=== PATIENT | female | born 1985 | race Caucasian/White ===

== ENCOUNTER 2016-10-06 21:44 | Emergency (ER) | payer OTHER ==
[~2016-10-06] VITALS: Ht 157.5 cm; Wt 54.3 kg
[~2016-10-06 21:44] MED LIST: BUTA1CAP6 PO; CHOLCAP5 PO; DIME1CAP2 PO; HYDR-3714 PO
[2016-10-06 21:53] VITALS: TEMP 36.5; Ht 157.5 cm; Wt 54.3 kg
[2016-10-06] MEDS ORDERED: LXP10 PO (22:58)
[2016-10-06] MEDS ORDERED: LXP/20 PO (22:58)
[2016-10-06] MEDS ORDERED: ONDANSETRON HOME PACK 4MG OD TAB PO ONE (23:00)
[2016-10-06] MEDS ORDERED: OXYCODONE IR HOME PACK PO ONE (23:00)
[2016-10-06] MEDS ORDERED: VALA1TAB2 PO (23:04)
[2016-10-06] MEDS ORDERED: OXYC1TAB3 PO (23:04)
[2016-10-06] MEDS ORDERED: ONDA4TAB10 SL (23:04)
[2016-10-06] MEDS ORDERED: PRED50TA PO (23:04)
[2016-10-06 23:24] VITALS: BP 122/78; PULSE 86; O2SAT 97
--- NOTE | 2016-10-07 02:28 | EMERGENCY ROOM VISIT NOTE ---
History First contact with patient: 22:47 Chief Complaint: RASH Stated Complaint: BLISTER RASH L ARM/PIT BACK History of Present Illness The patient is a 31 year old female who presents to the Emergency Room with complaints of painful blistering rash to left axilla for the past day. Patient is concerned she has shingles. She has MS. No recent flares of her MS. She has had the chickenpox before. Patient denies chest pain, dyspnea, fever, chills, cough, congestion, numbness, tingling. Review of Systems See HPI for pertinent positives & negatives. A total of 10 systems reviewed and were otherwise negative. Past Medical/Surgical History Medical Problems: (1) Multiple sclerosis Surgical Problems: (1) History of dilation and curettage (2) History of tonsillectomy Family History FHx: cancer FHx: diabetes FHx: gallbladder disease FHx: heart disease FHx: hypertension FHx: kidney disease/stones FHx: lung disease Social History Smoking Status: Current Every Day Smoker Alcohol Use: occasionally Drug Use: none Marital Status: in relationship Housing Status: lives with family Occupation Status: employed Current/Historical Medications Scheduled Amphetamine-Dextroamphetamine 10MG (Adderall 10MG), 10 MG PO BID Cholecalciferol (Vitamin D3), 5,000 UNITS PO DAILY Dimethyl Fumarate (Tecfidera), 240 MG PO BID Escitalopram Oxalate (Escitalopram Oxalate), 10 MG PO DAILY Escitalopram Oxalate (Escitalopram Oxalate), 20 MG PO DAILY Ondasetron Odt (Zofran Odt), 4 MG SL Q6H Prednisone (Prednisone), 50 MG PO DAILY Valacyclovir Hcl (Valtrex), 1,000 MG PO TID Scheduled PRN Hydrocodon/Acetaminophen 7.5MG/300MG (Vicodin Es (7.5MG/300MG)), 1 TAB PO BID PRN for Pain Oxycodone Immediate Rel Tab (Roxicodone Ir), 1-2 TAB PO Q4H PRN for Severe Pain Allergies Coded Allergies: Venlafaxine (Verified Adverse Reaction, Mild, DROWSINESS, 07/24/16) Morphine (Verified Adverse Reaction, Unknown, chest pain, 07/24/16) Physical Exam Vital Signs Date Time Temp Pulse Resp B/P Pulse Ox O2 Delivery O2 Flow Rate FiO2 10/06/16 23:24 86 18 122/78 97 10/06/16 21:53 36.5 86 18 122/78 97 Room Air Pain Rating (0-10): 7.0 Physical Exam VITALS: Vitals are noted on the nurse's note and reviewed by myself. Vital signs stable. GENERAL: Pleasant female, in no acute distress, nondiaphoretic, well-developed well-nourished. SKIN: Vesicular, glossy, grouped on erythematous base to the left C8 dermatome most consistent with shingles Capillary reflex less than 2 seconds. HEENT: Normocephalic. PERRLA. EOMI. Nares patent. Mucous membranes moist. Neck is supple without nuchal rigidity. HEART: Regular rate and rhythm without murmurs gallops or rubs. LUNGS: Clear to auscultation bilaterally without wheezes, rales or rhonchi. No retractions or accessory muscle use. ABDOMEN: Positive bowel sounds x 4. Normal tympanic percussion. Soft, nontender, without masses or organomegaly. Hickey sign negative. No guarding or rebound tenderness. MUSCULOSKELETAL: No gross musculoskeletal defects. NEURO: Patient was alert and oriented to person place and time. Normal sensation to light and sharp touch. No focal neurological deficits. Medical Decision & Procedures Medications Administered Medications (Trade) Dose Ordered Sig/Mari Route Start Time Stop Time Status Last Admin Dose Admin Valacyclovir HCl (Valtrex Tab) 1,000 mg NOW ONCE PO 10/06/16 23:00 10/06/16 23:01 DC 10/06/16 23:12 1,000 MG Oxycodone HCl (Roxicodone Immediate Rel 5MG Home Pack) 1 homepack UD ONCE PO 10/06/16 23:00 10/06/16 23:01 DC 10/06/16 23:12 1 HOMEPACK Prednisone (PredniSONE TAB) 60 mg NOW STAT PO 10/06/16 22:56 10/06/16 22:57 DC 10/06/16 23:12 60 MG Ondansetron HCl (ZOFRAN ODT 4MG Home Pack) 1 homepack UD ONCE PO 10/06/16 23:00 10/06/16 23:01 DC 10/06/16 23:12 1 HOMEPACK ED Course Prior records/ancillary studies reviewed. Triage Nursing notes reviewed. Additional history obtained from family. The patient's history was concerning for a rash. Differential diagnosis: Etiologies such as contact dermatitis, viral exanthem, urticaria, allergic reaction, Quiñones-Jeremias syndrome, toxic epidermal necrolysis, erythema multiforme, cellulitis, scabies, HSV, varicella, zoster, eczema, staph scalded skin syndrome, fungal infection, as well as others were entertained. Physical examination: Exam seems consistent with shingles ER treatment provided: Valtrex, prednisone On reassessment the patient felt better. Diagnostic interpretation by me: Deferred The etiology for the patient's rash appears to be consistent with shingles. Patient was started on medications of symptoms of present illness 48 hours. She is advised to stay away from immunocompromised people and from infants until rash resolves. She is advised follow-up family care in a few days or here in the ER sooner for severe pain, fevers, headache, eye problems, spreading of rash, worsening signs or symptoms or as needed. By the evaluation outlined above emergent etiologies such as Quiñones-Jeremias syndrome, toxic epidermal necrolysis, erythema multiforme, cellulitis, scabies, HSV, staph scalded skin syndrome, urticaria, allergic reaction, as well as others were deemed relatively unlikely. The pt informed about the findings as listed above. All questions were answered and pleased with the treatment. Return instructions were outlined and the patient was discharged in stable condition. Outpatient prescription management: valtrex, prednisone Referral: The patient was referred back to their primary care physician for follow-up in 2 -3 days for a recheck of the current condition. Medical Decision as above Impression Primary Impression: Shingles Departure Information Dispostion Home / Self-Care Condition GOOD Prescriptions Oxycodone Immediate Rel Tab (ROXICODONE IR) 5 Mg Tab 1-2 TAB PO Q4H Y for Severe Pain, #10 TAB Prov: Roula Mcdowell PA-C 10/06/16 Valacyclovir Hcl (VALTREX) 1 Gm Tab 1000 MG PO TID for 7 Days, #21 TAB Prov: Roula Mcdowell PA-C 10/06/16 Ondasetron Odt (ZOFRAN ODT) 4 Mg Tab 4 MG SL Q6H, #10 TAB Prov: Roula Mcdowell PA-C 10/06/16 Prednisone (Prednisone) 50 Mg Tab 50 MG PO DAILY for 4 Days, #4 TAB Prov: Roula Mcdowell PA-C 10/06/16 Forms WORK / SCHOOL INSTRUCTIONS, HOME CARE DOCUMENTATION FORM, IMPORTANT VISIT INFORMATION Patient Instructions Shingles Herpes Zoster, My [facility] Additional Instructions Oxycodone (OxyIR) 5mg: Take 1-2 pills every four hours for breakthrough pain. Avoid alcohol, operating machinery or dangerous equipment, working on ladders or roofs, DRIVING, or situations where being under the influence may be dangerous. It is recommended to use an [id number] stool softener such as Colace, 100mg twice daily while taking this medication to avoid constipation. Zofran(odansetron) tablets 4mg: Take one and allow it to dissolve in your mouth every four to six hours as needed for nausea or vomiting. Prednisone 50mg: Once daily until the prescription is finished. It is best to take this earlier in the day as some patients note occasional difficulty falling asleep when taken in the late evening. Valtrex 1 g: Take 1 gram 3 times a day for 7 days. Any medication can cause an allergic reaction, stop the pills immediately and return to the ER for rash, hives, breathing difficulties, or swelling. Acetaminophen(Tylenol) may be used for fever or pain. Use 1000mg every six hours as needed. Avoid using more than 3000mg in a 24 hour period. (AND/OR) Ibuprofen(Motrin, Advil) may be used for fever or pain. Use 600mg every six hours as needed. Take with food. Avoid using more than 2400mg in a 24 hour period. Do not use 2400mg per day for more than three consecutive days without physician direction. Prolonged inappropriate use can lead to stomach upset or ulcers. Rest and drink plenty of fluids. Continue current medications. Return to the ER for chest pain, difficulty breathing, fevers, vomiting, worsening of your condition, or as needed. Follow up with your primary physician this week for a recheck of your current condition. Problem Qualifiers Primary Impression: Shingles Herpes zoster complications: without complications Qualified Codes: B02.9 - Zoster without complications
[2017-01-29] MEDS ORDERED: AMPH10TA2 PO (05:01)
[2017-04-25] MEDS ORDERED: HYDR-3983 PO (13:49)
[2017-04-25] MEDS ORDERED: AMOX875T PO (13:52)
== END 2016-10-06 23:26 | disposition home or self-care (01) ==
LOC: C.EDB 21:45 → C.EDA 23:26
DX: B02.9 Zoster without complications (principal); G35 Multiple sclerosis; F17.200 Nicotine dependence, unspecified, uncomplicated; Z90.89 Acquired absence of other organs; Z98.890 Other specified postprocedural states; Z83.3 Family history of diabetes mellitus; Z82.49 Family history of ischemic heart disease and other diseases of the circulatory system; Z84.1 Family history of disorders of kidney and ureter; Z79.52 Long term (current) use of systemic steroids

== ENCOUNTER → 2016-10-28 | Outpatient (CLI) | payer OTHER ==
[~2016-10-28] MED LIST changes: +AMOX875T PO; +AMPH10TA2 PO; -BUTA1CAP6 PO; +CLIN300C2 PO; +ERGO500037 PO; +ESCI1TAB10 PO; +ESCI1TAB9 PO; +HYDR-3983 PO; +IBUP-1451 PO; +LXP/20 PO; +LXP10 PO; +ONDA4TAB10 SL; +OXYC1TAB3 PO; +PRLSR20 PO; +ZNTT/150 PO
[2016-11-02 18:35] LABS: JCV ANTIBODY NEGATIVE; JCV INDEX 0.18
== END | disposition home or self-care (01) ==
LOC: C.LABBFT 11:23
PROVIDERS: ATTEND Psychiatry & Neurology Neurology
DX: G35 Multiple sclerosis (principal)

== ENCOUNTER 2016-12-01 17:39 | Emergency (ER) | payer OTHER ==
[~2016-12-01] VITALS: Ht 167.6 cm; Wt 51.8 kg
[~2016-12-01 17:39] MED LIST changes: -AMOX875T PO; -AMPH10TA2 PO; -CLIN300C2 PO; -ERGO500037 PO; -ESCI1TAB10 PO; -ESCI1TAB9 PO; -HYDR-3983 PO; -IBUP-1451 PO; -PRLSR20 PO; -ZNTT/150 PO
[2016-12-01 17:46] VITALS: Ht 167.6 cm; Wt 51.8 kg
[2016-12-01] MEDS ORDERED: SODIUM CHLORIDE 0.9% 1000ML 1,000 ML IV STA (18:03)
[2016-12-01 18:57] LABS: BUN/CREATININE RATIO 23.2 (10-20); CALCIUM 9.3 mg/dl (8.5-10.1); CREATININE 0.72 mg/dl (0.60-1.20); POTASSIUM 3.3 mmol/L (3.5-5.1)
[2016-12-01 19:00] LABS: ALB/GLOB RATIO 1.2 (0.9-2)
[2016-12-01 19:20] LABS: BASO % 0.5 %; BASO ABS # 0.05 K/uL (0-0.2); COMPLETE YES; EOS % 0.6 %; HEMATOCRIT 38.5 % (37-47); IG% 0.6 %; LYMPH % 17.6 %; LYMPH ABS # 1.92 K/uL (1.2-3.4); MEAN CELL VOLUME 94.1 fL (80-100); MEAN CORPUSCULAR HEMOGLOBIN 33.5 pg (25-34); MEAN CORPUSCULAR HGB CONC 35.6 g/dl (32-36); MEAN PLATELET VOLUME 9.9 fL (7.4-10.4); NEUT % 72.7 %; PLATELET COUNT 336 K/uL (130-400); RED BLOOD COUNT 4.09 M/uL (4.2-5.4)
--- NOTE | 2016-12-01 19:58 | DIAGNOSTIC IMAGING REPORT ---
LIMITED (US) CLINICAL HISTORY: vaginal bleeding, pos COMPARISON STUDY: Pelvic ultrasound 11/27/2015. FINDINGS: There is a 9 mm cystic focus within the fundus of the uterus with surrounding thickened endometrium. The endometrium slightly heterogeneous. No pole or heart rate identified at this time. There is a normal in size and contain a few small simple and complex cysts. No significant pelvic free fluid. IMPRESSION: There is 9 mm cystic focus within the fundus of the uterus with surrounding thickened and heterogeneous endometrium. This favors a gestational sac in the setting of a positive test. There appears be a small amount of subchorionic hemorrhage accounting for the heterogeneous endometrium. No pole or heart rate identified at this time. Therefore, this is consistent with a 4 week intrauterine gestation. Continued beta-hCG and follow-up pelvic ultrasound can be performed to evaluate for continuation of the versus a spontaneous in progress.. Electronically signed by: Bandar Guardado M.D. 12/01/2016 7:56 PM Dictated Date/Time: 12/01/2016 7:52 PM
--- NOTE | 2016-12-01 21:01 | EMERGENCY ROOM VISIT NOTE ---
History First contact with patient: 17:50 Chief Complaint: ED VAG BLEEDING Stated Complaint: BLEEDING History of Present Illness The patient is a 31 year old female who presents to the Emergency Room with complaints of vaginal bleeding. The patient reports that she had a positive test 3 weeks ago. She states that her last menstrual period was . She states that she has had spotting which began 3 days ago. She reports the bleeding became heavy last night and she has been using pads today. She reports there was a small clot which passed in the toilet today. She sees Sherly Sanchez [facility] but has not yet seen them for this . She does report 3 previous pregnancies. She carried 2 to term and states that she had to have an emergent D&C for a miscarriage at approximately 14 weeks. She believes she is blood type A+. She denies any abdominal cramping, urinary symptoms or fevers. Review of Systems A complete 10-point Review of Systems was discussed with the patient, with pertinent positives and negatives listed in the History of Present Illness. All remaining Review of Systems questions can be considered negative unless otherwise specified. Past Medical/Surgical History Medical Problems: (1) Multiple sclerosis Surgical Problems: (1) History of dilation and curettage (2) History of tonsillectomy Family History FHx: cancer FHx: diabetes FHx: gallbladder disease FHx: heart disease FHx: hypertension FHx: kidney disease/stones FHx: lung disease Social History Smoking Status: Current Every Day Smoker Alcohol Use: occasionally Drug Use: none Marital Status: in relationship Housing Status: lives with family Occupation Status: employed Current/Historical Medications Scheduled Amphetamine-Dextroamphetamine 10MG (Adderall 10MG), 10 MG PO BID Cholecalciferol (Vitamin D3), 5,000 UNITS PO DAILY Allergies Coded Allergies: Venlafaxine (Verified Adverse Reaction, Mild, DROWSINESS, 12/01/16) Morphine (Verified Adverse Reaction, Unknown, chest pain, 12/01/16) Physical Exam Vital Signs Date Time Temp Pulse Resp B/P Pulse Ox O2 Delivery O2 Flow Rate FiO2 12/01/16 21:48 78 18 114/68 98 Room Air 12/01/16 21:41 36.7 74 18 122/75 95 12/01/16 17:46 36.7 74 18 122/75 95 Room Air Physical Exam VITALS: Vitals are noted on the nurse's note and reviewed by myself. Vital signs stable. GENERAL: This is a 31-year-old female, in no acute distress, nondiaphoretic, well-developed well-nourished. SKIN: Capillary reflex less than 2 seconds. HEENT: Normocephalic. PERRLA. HEART: Regular rate and rhythm without murmurs gallops or rubs. LUNGS: Clear to auscultation bilaterally without wheezes, rales or rhonchi. ABDOMEN: Positive bowel sounds x 4. Soft, nontender without masses or organomegaly. NEURO: Patient was alert and oriented to person place and time. Medical Decision & Procedures ER Provider Diagnostic Interpretation: LIMITED (US) CLINICAL HISTORY: vaginal bleeding, pos COMPARISON STUDY: Pelvic ultrasound 11/27/2015. FINDINGS: There is a 9 mm cystic focus within the fundus of the uterus with surrounding thickened endometrium. The endometrium slightly heterogeneous. No pole or heart rate identified at this time. There is a normal in size and contain a few small simple and complex cysts. No significant pelvic free fluid. IMPRESSION: There is 9 mm cystic focus within the fundus of the uterus with surrounding thickened and heterogeneous endometrium. This favors a gestational sac in the setting of a positive test. There appears be a small amount of subchorionic hemorrhage accounting for the heterogeneous endometrium. No pole or heart rate identified at this time. Therefore, this is consistent with a 4 week intrauterine gestation. Continued beta-hCG and follow-up pelvic ultrasound can be performed to evaluate for continuation of the versus a spontaneous in progress.. Laboratory Results 12/01/16 18:24 Red Blood Count 4.09, Mean Corpuscular Volume 94.1, Mean Corpuscular Hemoglobin 33.5, Mean Corpuscular Hemoglobin Concent 35.6, Mean Platelet Volume 9.9, Neutrophils (%) (Auto) 72.7, Lymphocytes (%) (Auto) 17.6, Monocytes (%) (Auto) 8.0, Eosinophils (%) (Auto) 0.6, Basophils (%) (Auto) 0.5, Neutrophils # (Auto) 7.94, Lymphocytes # (Auto) 1.92, Monocytes # (Auto) 0.87, Eosinophils # (Auto) 0.06, Basophils # (Auto) 0.05 12/01/16 18:24 Test 12/01/16 18:24 White Blood Count 10.90 K/uL (4.8-10.8) Red Blood Count 4.09 M/uL (4.2-5.4) Hemoglobin 13.7 g/dL (12.0-16.0) Hematocrit 38.5 % (37-47) Mean Corpuscular Volume 94.1 fL (80-100) Mean Corpuscular Hemoglobin 33.5 pg (25-34) Mean Corpuscular Hemoglobin Concent 35.6 g/dl (32-36) Platelet Count 336 K/uL (130-400) Mean Platelet Volume 9.9 fL (7.4-10.4) Neutrophils (%) (Auto) 72.7 % Lymphocytes (%) (Auto) 17.6 % Monocytes (%) (Auto) 8.0 % Eosinophils (%) (Auto) 0.6 % Basophils (%) (Auto) 0.5 % Neutrophils # (Auto) 7.94 K/uL (1.4-6.5) Lymphocytes # (Auto) 1.92 K/uL (1.2-3.4) Monocytes # (Auto) 0.87 K/uL (0.11-0.59) Eosinophils # (Auto) 0.06 K/uL (0-0.5) Basophils # (Auto) 0.05 K/uL (0-0.2) RDW Standard Deviation 46.3 fL (36.4-46.3) RDW Coefficient of Variation 13.4 % (11.5-14.5) Immature Granulocyte % (Auto) 0.6 % Immature Granulocyte # (Auto) 0.06 K/uL (0.00-0.02) Red Blood Cell Morphology Unremarkable Anion Gap 8.0 mmol/L (3-11) Est Creatinine Clear Calc Drug Dose 91.7 ml/min Estimated GFR () 128.4 Estimated GFR (Non- 110.8 BUN/Creatinine Ratio 23.2 (10-20) Calcium Level 9.3 mg/dl (8.5-10.1) Total Bilirubin 0.7 mg/dl (0.2-1) Aspartate Amino Transf (AST/SGOT) 10 U/L (15-37) Alanine Aminotransferase (ALT/SGPT) 18 U/L (12-78) Alkaline Phosphatase 84 U/L (45-117) Total Protein 8.0 gm/dl (6.4-8.2) Albumin 4.4 gm/dl (3.4-5.0) Globulin 3.6 gm/dl (2.5-4.0) Albumin/Globulin Ratio 1.2 (0.9-2) Human Chorionic Gonadotropin, Quant 9637 mIU/mL Medications Administered Medications (Trade) Dose Ordered Sig/Mari Route Start Time Stop Time Status Last Admin Dose Admin Sodium Chloride (Nss 1000ml) 1,000 ml @ 999 mls/hr Q1H1M STAT IV 12/01/16 18:03 12/01/16 19:03 DC 12/01/16 18:33 999 MLS/HR ED Course The patient was evaluated as above. Labs were drawn and IV access was obtained. Patient was medicated with 1 L normal saline solution. Pelvic ultrasound was performed and read by radiology as above. Use was discussed with Dr. Martinez, on-call for [facility]. Patient was reevaluated and findings were discussed. She was ready for discharge home. Discharge instructions were reviewed with the patient. The patient verbalized understanding of my assessment and treatment plan and was discharged home in good condition. Medical Decision Differential diagnosis includes spontaneous , ectopic , threatened , subchorionic hemorrhage, among others. The patient is a 31-year-old female who presents today complaining of vaginal bleeding in the setting of a positive test. Labs revealed a mild leukocytosis, no anemia. Beta hCG was found to be 9637. Pelvic ultrasound was performed and showed what appears to be either a four-week intrauterine or a spontaneous in progress. There is no evidence of an ectopic . Patient is blood type A-positive and will not require RhoGAM. Case was discussed with [facility] and they recommended a 1 week follow-up for pelvic ultrasound. The patient will call tomorrow for appointment. She will return for worsening bleeding or new/concerning symptoms. The patient's case was reviewed with Dr. Roman, ED attending physician, who agreed with my assessment and treatment plan. Based on the patient's presentation and work up, I feel the patient is stable for outpatient treatment. The patient was educated to the emergency department for any worsening of their current condition or new/concerning symptoms. They will follow up with [facility] in one week. Impression Primary Impression: Threatened Departure Information Dispostion Home / Self-Care Condition GOOD Referrals Joann Woods DO (PCP) Patient Instructions My [facility] Additional Instructions Follow-up with [facility]. Call them tomorrow to schedule an appointment for an ultrasound in 1 week. Tylenol as needed for any pain. Return to the emergency department for abdominal pain, vomiting, fevers, weakness, dizziness or any other new/concerning symptoms.
[2016-12-01 21:41] VITALS: TEMP 36.7
[2016-12-01 21:48] VITALS: BP 114/68; PULSE 78; O2SAT 98
[2017-01-29] MEDS ORDERED: AMPH10TA2 PO (05:01)
[2017-04-25] MEDS ORDERED: HYDR-3983 PO (13:49)
[2017-04-25] MEDS ORDERED: AMOX875T PO (13:52)
== END 2016-12-01 21:42 | disposition home or self-care (01) ==
LOC: C.EDB 17:40 → C.EDA 21:42
DX: O20.0 Threatened abortion (principal); O99.350 Diseases of the nervous system complicating pregnancy, unspecified trimester; G35 Multiple sclerosis; O99.330 Smoking (tobacco) complicating pregnancy, unspecified trimester; F17.210 Nicotine dependence, cigarettes, uncomplicated; Z79.899 Other long term (current) drug therapy; Z3A.01 Less than 8 weeks gestation of pregnancy

== ENCOUNTER → 2016-12-07 | Outpatient (CLI) | payer OTHER ==
[~2016-12-07] MED LIST changes: +AMOX875T PO; +AMPH10TA2 PO; +CLIN300C2 PO; -DIME1CAP2 PO; +ERGO500037 PO; +ESCI1TAB10 PO; +ESCI1TAB9 PO; -HYDR-3714 PO; +HYDR-3983 PO; +IBUP-1451 PO; -LXP/20 PO; -LXP10 PO; -ONDA4TAB10 SL; +PRLSR20 PO; +ZNTT/150 PO
[2016-12-07 17:35] LABS: BASO ABS # 0.09 K/uL (0-0.2); COMPLETE YES; EOS % 2.7 %; HEMATOCRIT 35.3 % (37-47); IG% 0.1 %; LYMPH % 26.7 %; LYMPH ABS # 2.31 K/uL (1.2-3.4); MEAN CELL VOLUME 99.7 fL (80-100); MEAN CORPUSCULAR HEMOGLOBIN 33.6 pg (25-34); MEAN CORPUSCULAR HGB CONC 33.7 g/dl (32-36); MEAN PLATELET VOLUME 10.5 fL (7.4-10.4); MONO % 7.5 %; PLATELET COUNT 315 K/uL (130-400); RED BLOOD COUNT 3.54 M/uL (4.2-5.4); WHITE BLOOD COUNT 8.66 K/uL (4.8-10.8)
[2016-12-07 18:11] LABS: ALT/SGPT 18 U/L (12-78); AST/SGOT 8 U/L (15-37); BLOOD UREA NITROGEN 20 mg/dl (7-18); BUN/CREATININE RATIO 28.2 (10-20); CALCIUM 8.9 mg/dl (8.5-10.1); CARBON DIOXIDE 28 mmol/L (21-32); CHLORIDE 108 mmol/L (98-107); CREATININE 0.71 mg/dl (0.60-1.20); GLUCOSE 71 mg/dl (70-99); POTASSIUM 3.5 mmol/L (3.5-5.1); SODIUM 144 mmol/L (136-145)
[2016-12-07 18:14] LABS: ALB/GLOB RATIO 1.3 (0.9-2); ALKALINE PHOSPHATASE 67 U/L (45-117)
== END | disposition home or self-care (01) ==
LOC: C.LABBFT 11:48
PROVIDERS: ATTEND Psychiatry & Neurology Neurology
DX: O99.350 Diseases of the nervous system complicating pregnancy, unspecified trimester (principal); G35 Multiple sclerosis; E55.9 Vitamin D deficiency, unspecified; O20.0 Threatened abortion

== ENCOUNTER 2017-01-29 15:11 | Emergency (ER) | payer OTHER ==
[~2017-01-29] VITALS: Ht 167.6 cm; Wt 49.0 kg
[~2017-01-29 15:11] MED LIST changes: -AMOX875T PO; -CLIN300C2 PO; -ERGO500037 PO; -ESCI1TAB10 PO; -ESCI1TAB9 PO; -HYDR-3983 PO; -IBUP-1451 PO; -OXYC1TAB3 PO; -PRLSR20 PO; -ZNTT/150 PO
[2017-01-29 15:14] VITALS: TEMP 36.8; Ht 167.6 cm; Wt 49.0 kg
[2017-01-29] MEDS ORDERED: IBUPROFEN 800 MG TAB PO STA (15:50)
[2017-01-29] MEDS ORDERED: ESCI1TAB9 PO (16:04)
[2017-01-29] MEDS ORDERED: ERGO500037 PO (16:04)
[2017-01-29] MEDS ORDERED: ESCI1TAB10 PO (16:04)
--- NOTE | 2017-01-29 16:19 | DIAGNOSTIC IMAGING REPORT ---
RIGHT FOOT MIN 3 VIEWS ROUTINE CLINICAL HISTORY: right foot pain/swelling Right pain. Edema. COMPARISON: None. DISCUSSION: The bones and joint spaces appear intact. There is no evidence of fracture, dislocation or bony disease. There is no evidence for soft tissue swelling. IMPRESSION: Negative study. Electronically signed by: Ptaricio Mendez M.D. 01/29/2017 4:18 PM Dictated Date/Time: 01/29/2017 4:17 PM
--- NOTE | 2017-01-29 16:21 | DIAGNOSTIC IMAGING REPORT ---
RIGHT ANKLE MIN 3 VIEWS ROUTINE CLINICAL HISTORY: Right ankle pain swelling. TRAUMA COMPARISON: None. DISCUSSION: There is bimalleolar soft tissue swelling. The ankle mortise appears intact. There is a tiny age-indeterminate avulsion adjacent to the medial malleolus. IMPRESSION: Soft tissue swelling. Tiny age-indeterminate avulsion adjacent to the medial malleolus Electronically signed by: Nj Palomares M.D. 01/29/2017 4:20 PM Dictated Date/Time: 01/29/2017 4:18 PM
--- NOTE | 2017-01-29 18:35 | DIAGNOSTIC IMAGING REPORT ---
ULTRASOUND RIGHT VENOUS DOPP LOWER EXT UNILAT CLINICAL HISTORY: Right leg swelling. COMPARISON STUDY: No previous studies for comparison. FINDINGS: Real-time and color flow Doppler imaging were performed. Flow was seen within the femoral, popliteal and calf veins with no intraluminal thrombus demonstrated. The saphenous vein is patent. IMPRESSION: No evidence of right lower extremity DVT. Electronically signed by: Nj Palomares M.D. 01/29/2017 6:34 PM Dictated Date/Time: 01/29/2017 6:34 PM
[2017-01-29] MEDS ORDERED: CLIN300C2 PO (19:04)
[2017-01-29] MEDS ORDERED: IBUP-1451 PO (19:06)
--- NOTE | 2017-01-29 19:10 | EMERGENCY ROOM VISIT NOTE ---
ED Visit Note First contact with patient: 15:42 CHIEF COMPLAINT: Right Foot/ankle swelling and pain HISTORY OF PRESENT ILLNESS: This 31-year-old female patient presents to the emergency department in a wheelchair, with her uncle complaining of swelling and pain in the right foot and ankle at rest and worse with weight bearing. The patient states she awoke this morning with spontaneous swelling and pain. She does report 1-2 days ago, she rolled her foot when she stepped in a hole while walking outside. The patient rates the pain as throbbing and 10/10. The patient has had no relief of the pain since it began. Patient states she did take 7.5 mg Roxana she has at home, without relief of the discomfort. The patient is able to walk, however, this causes significant discomfort. No numbness or weakness. There are no lacerations of the foot. The patient is able to move all of their toes and their ankle, however, this causes significant discomfort. No previous fracture to this foot. REVIEW OF SYSTEMS: GENERAL: A 6 system review of systems was completed with positives and pertinent negatives in the HPI. ALLERGIES: Morphine, Effexor MEDICATIONS: Roxana, vitamin D, Lexapro, Adderall PMH: MS, depression, chronic pain SOCIAL HISTORY: Patient lives locally with her family. She admits to smoking approximately one pack cigarettes per day. She reports social alcohol use, denies drug use. PHYSICAL EXAM: Vital Signs: Reviewed Nurse's notes, vital signs stable. GENERAL : 31-year-old female, presents in a wheelchair, in no acute distress, but appears in pain, well-developed, well-nourished. LUNGS: Breath sounds clear and equal bilaterally. No wheezes, rhonchi, rales. HEART: RRR, No S3, S4, no murmur noted on auscultation. MUSCULOSKELATAL: Tattoo on dorsal aspect of right foot. Patient states this is several years old. There is no visual deformity of the right foot. There is mild erythema, but no ecchymosis. There is mild warmth. There is tenderness and swelling over the dorsal aspect of the right foot and lateral aspect of the right ankle. There is tenderness over the lateral malleolus, no tenderness over the medial malleolus. No tenderness of the tib/ fib. The range of motion of the right foot and ankle is moderately limited secondary to pain. There is no tenderness over the plantar fascia. The skin is intact and there are no obvious lacerations or puncture wounds. Dorsalis pedis pulse 2+. Capillary refill less than 2 seconds. EMERGENCY DEPARTMENT COURSE: I examined the patient. An X-ray of the right ankle and foot was reviewed by myself and radiology and reveals: Right Ankle: DISCUSSION: There is bimalleolar soft tissue swelling. The ankle mortise appears intact. There is a tiny age-indeterminate avulsion adjacent to the medial malleolus. IMPRESSION: Soft tissue swelling. Tiny age-indeterminate avulsion adjacent to the medial malleolus Right foot: DISCUSSION: The bones and joint spaces appear intact. There is no evidence of fracture, dislocation or bony disease. There is no evidence for soft tissue swelling. IMPRESSION: Negative study. Due to negative x-ray for fracture, erythema, warmth, and swelling, lower extremity ultrasound performed to rule out blood clot. Ultrasound results: FINDINGS: Real-time and color flow Doppler imaging were performed. Flow was seen within the femoral, popliteal and calf veins with no intraluminal thrombus demonstrated. The saphenous vein is patent. IMPRESSION: No evidence of right lower extremity DVT. Upon reevaluation of patient, patient appears extremely lethargic, and is deeply sleeping. She is slow to respond, and required gentle shaking in order to awaken her to discuss results of studies. I questioned patient regarding the use of injection drugs, or other possible causes of cellulitis, and patient declines all possible causes. I questioned the patient whether she took any more hydrocodone since she has been in the emergency department due to increased lethargy and patient declines this as well. I discussed the results of the studies with the patient and discussed with her possibilities for swelling, redness, warmth, pain in her right foot and ankle. I suspect cellulitis at this time. I had to awaken the patient several times throughout our 5-10 minute conversation and repeat myself in order for patient to respond. Patient does state she understands follow-up instructions and is in agreement with plan of care at this time. Patient remained in the emergency department until she was able to call a ride to take her home, due to lethargy in the emergency department. The patient's picked her up in the parking lot. Nursing staff accompanied patient to parking lot to ensure she did not further injure herself. The patient was instructed on the use of crutches. The patient was discharged home with her in good condition. DIAGNOSIS: cellulitis of right foot DIFFERENTIAL DIAGNOSIS: Contusion, metatarsal or tarsal bone fracture, DVT, cellulitis, ankle sprain TREATMENT: You were prescribed clindamycin to be taken 4 times per day for 10 days. This is an antibiotic. All antibiotics have the potential to cause diarrhea. Stop this medication and contact a medical provider if you were to develop any significant adverse side effects including: wheezing, shortness of breath, passing out, vomiting, or a diffuse rash. Always take antibiotics as directed and COMPLETE the ENTIRE course regardless of the improvement of your symptoms. Patient should use ice and elevate the foot for discomfort and swelling. For pain control, you can use the following mpik-gen-colmpls medicines (if >12 yo): - Regular strength (325mg/tab) Tylenol (acetaminophen) 2 tabs every 4-6 hours as needed. Do not exceed 12 tablets in a 24 hour period. Avoid taking more than 4 grams (4000 mg) of Tylenol per day. This includes any other sources of acetaminophen you may take on a regular basis. - You may take the tylenol in addition to the ibuprofen you should be taking every 8 hours for inflammation. Use crutches as instructed to avoid putting pressure on your foot. Stay off of the foot as much as possible. I strongly encourage you not to participate in any activities which could worsen the infection, including injection drug use, walking barefoot, or other activities as discussed. Follow up in the emergency department for increased pain, redness, swelling, dyspnea, fever, chills, body aches. Problem List Medical Problems: (1) Multiple sclerosis Status: Chronic Surgical Problems: (1) History of dilation and curettage Status: Resolved (2) History of tonsillectomy Status: Resolved Current/Historical Medications Scheduled Amphetamine-Dextroamphetamine 10MG (Adderall 10MG), 10 MG PO BID Clindamycin Hcl (Cleocin), 300 MG PO QID Ergocalciferol (Vitamin D 12404 Unit), 50,000 INTER.UNIT PO WK Escitalopram Oxalate (Lexapro), 10 MG PO DAILY Escitalopram Oxalate (Lexapro), 20 MG PO DAILY Scheduled PRN Ibuprofen Tab (Motrin), 800 MG PO Q8H PRN for Pain Allergies Coded Allergies: Venlafaxine (Verified Adverse Reaction, Mild, DROWSINESS, 12/01/16) Morphine (Verified Adverse Reaction, Unknown, chest pain, 12/01/16) Vital Signs Date Time Temp Pulse Resp B/P (MAP) Pulse Ox O2 Delivery O2 Flow Rate FiO2 01/29/17 20:25 89 16 125/75 93 01/29/17 15:14 36.8 98 18 127/83 93 Room Air Medications Administered Medications (Trade) Dose Ordered Sig/Mari Route Start Time Stop Time Status Last Admin Dose Admin Ibuprofen (Motrin Tab) 800 mg NOW STAT PO 01/29/17 15:50 01/29/17 15:52 DC 01/29/17 16:18 800 MG Departure Information Impression Primary Impression: Cellulitis of foot, right Dispostion Home / Self-Care Condition GOOD Prescriptions Ibuprofen Tab (MOTRIN) 800 Mg Tab 800 MG PO Q8H Y for Pain, #30 TAB For Initial Treatment Prov: Fawn Meredith PA-C 01/29/17 Clindamycin Hcl (CLEOCIN) 300 Mg Cap 300 MG PO QID for 10 Days, #40 CAP Prov: Fawn Meredith PA-C 01/29/17 Referrals Joann Woods DO (PCP) Patient Instructions My [facility] Additional Instructions You were prescribed clindamycin to be taken 4 times per day for 10 days. This is an antibiotic. All antibiotics have the potential to cause diarrhea. Stop this medication and contact a medical provider if you were to develop any significant adverse side effects including: wheezing, shortness of breath, passing out, vomiting, or a diffuse rash. Always take antibiotics as directed and COMPLETE the ENTIRE course regardless of the improvement of your symptoms. Patient should use ice and elevate the foot for discomfort and swelling. For pain control, you can use the following [id number] medicines (if >12 yo): - Regular strength (325mg/tab) Tylenol (acetaminophen) 2 tabs every 4-6 hours as needed. Do not exceed 12 tablets in a 24 hour period. Avoid taking more than 4 grams (4000 mg) of Tylenol per day. This includes any other sources of acetaminophen you may take on a regular basis. - You may take the tylenol in addition to the ibuprofen you should be taking every 8 hours for inflammation. Use crutches as instructed to avoid putting pressure on your foot. Stay off of the foot as much as possible. I strongly encourage you not to participate in any activities which could worsen the infection, including injection drug use, walking barefoot, or other activities as discussed. Follow up in the emergency department for increased pain, redness, swelling, dyspnea, fever, chills, body aches.
[2017-01-29 20:25] VITALS: BP 125/75; PULSE 89; O2SAT 93
[2017-04-25] MEDS ORDERED: HYDR-3983 PO (13:49)
[2017-04-25] MEDS ORDERED: AMOX875T PO (13:52)
== END 2017-01-29 20:26 | disposition home or self-care (01) ==
LOC: C.EDB 15:12 → C.EDD 20:26
DX: L03.115 Cellulitis of right lower limb (principal); G35 Multiple sclerosis; F32.9 Major depressive disorder, single episode, unspecified; G89.29 Other chronic pain; F17.210 Nicotine dependence, cigarettes, uncomplicated

== ENCOUNTER 2017-03-18 14:10 | Emergency (ER) | payer OTHER ==
[~2017-03-18] VITALS: Ht 167.6 cm; Wt 50.4 kg
[~2017-03-18 14:10] MED LIST changes: -CHOLCAP5 PO; +ERGO500037 PO; +ESCI1TAB10 PO; +ESCI1TAB9 PO; +IBUP-1451 PO
[2017-03-18 14:12] VITALS: TEMP 36.7; Ht 167.6 cm; Wt 50.4 kg
[2017-03-18] MEDS ORDERED: HYDR-3983 PO (14:30)
[2017-03-18] MEDS ORDERED: SODIUM CHLORIDE 0.9% 1000ML 500 ML IV STA (14:32)
[2017-03-18] MEDS ORDERED: SODIUM CHLORIDE 0.9% 1000ML 1,000 ML IV STA (14:32)
--- NOTE | 2017-03-18 14:51 | DIAGNOSTIC IMAGING REPORT ---
CHEST ONE VIEW PORTABLE CLINICAL HISTORY: 31 years-old Female presenting with ABDOMINAL PAIN/GI. TECHNIQUE: Portable upright AP view of the chest was obtained. COMPARISON: 02/22/2014. FINDINGS: Cardiomediastinal silhouette normal. Lungs and pleural spaces clear. Osseous structures and upper abdomen normal. IMPRESSION: 1. No acute cardiopulmonary disease. Electronically signed by: Itz Arteaga M.D. 03/18/2017 2:49 PM Dictated Date/Time: 03/18/2017 2:49 PM
--- NOTE | 2017-03-18 14:55 | EMERGENCY ROOM VISIT NOTE ---
History Report prepared by Sanjeev: Edward Sanchez Under the Supervision of: Dr. Papa Devi M.D. First contact with patient: 14:26 Chief Complaint: ABDOMINAL PAIN Stated Complaint: ABD. PAIN History of Present Illness The patient is a 31 year old female who presents to the Emergency Room with complaints of worsening, bilateral upper abdominal pain beginning a few weeks ago. The patient states that she had an endoscopy and was told that she had a slight hiatal hernia. She reports that for the past few months it would create a lump in her epigastric region that would cause her to have to straighten out and massage it back down. The patient notes that for the past week, her hernia now creates a divot in her epigastric region and bilateral tenderness to her upper abdomen. She states that it takes more time to bring it back down than normal. She denies fever, vomiting, trouble swallowing, urinary symptoms, , vaginal bleeding, and trauma to her stomach. The patient reports that she was at the cancer clinic this morning for treatment of her MS. She notes that she has a history of cervical cancer and had a partial hysterectomy. Source of History: patient Onset: few weeks ago Position: abdomen (upper, bilateral) Timing: worsening Associated Symptoms: No fevers, No vomiting, No urinary symptoms Note: Denies: trouble swallowing, , vaginal bleeding, trauma to stomach Review of Systems See HPI for pertinent positives & negatives. A total of 10 systems reviewed and were otherwise negative. Past Medical & Surgical Medical Problems: (1) Multiple sclerosis Surgical Problems: (1) History of dilation and curettage (2) History of tonsillectomy Family History FHx: cancer FHx: diabetes FHx: gallbladder disease FHx: heart disease FHx: hypertension FHx: kidney disease/stones FHx: lung disease Social History Smoking Status: Current Every Day Smoker Alcohol Use: occasionally Drug Use: none Marital Status: in relationship Housing Status: lives with family Occupation Status: employed Current/Historical Medications Scheduled Amphetamine-Dextroamphetamine 10MG (Adderall 10MG), 10 MG PO BID Ergocalciferol (Vitamin D 90150 Unit), 50,000 INTER.UNIT PO WK Escitalopram Oxalate (Lexapro), 10 MG PO DAILY Escitalopram Oxalate (Lexapro), 20 MG PO DAILY Omeprazole (Prilosec), 20 MG PO DAILY Ranitidine (Zantac), 150 MG PO BID Scheduled PRN Hydrocodone/Acetaminophen 7.5MG/325MG ([place] 7.5MG/325MG), 1 TAB PO DAILY PRN for Pain Allergies Coded Allergies: Venlafaxine (Verified Adverse Reaction, Mild, DROWSINESS, 03/18/17) Morphine (Verified Adverse Reaction, Unknown, chest pain, 03/18/17) Physical Exam Vital Signs Date Time Temp Pulse Resp B/P (MAP) Pulse Ox O2 Delivery O2 Flow Rate FiO2 03/18/17 18:21 95 17 127/83 99 03/18/17 16:25 77 17 116/70 100 Room Air 03/18/17 14:12 36.7 111 15 127/80 97 Room Air Physical Exam GENERAL: Patient is in no acute distress. HEENT: No acute trauma, normocephalic atraumatic, mucous membranes moist, no nasal congestion, no scleral icterus. NECK: No stridor, no adenopathy, no meningismus, trachea is midline. LUNGS: Clear to auscultation bilaterally, no wheeze, no rhonchi, breath sounds equal. HEART: Tachycardic with a regular rhythm, no murmurs. ABDOMEN: Soft, tender in the epigastrium and both upper quadrants, bowel sounds positive, no hernias, no peritonitis. EXTREMITIES: No cyanosis or edema, full range of motion of all the joints without pain or difficulty, no signs for acute trauma. NEUROLOGIC: Oriented x 3, no acute motor or sensory deficits, no focal weakness. SKIN: No rash, no jaundice, no diaphoresis. Medical Decision & Procedures ER Provider Diagnostic Interpretation: Radiology results as stated below per my review and radiologist interpretation: CHEST ONE VIEW PORTABLE CLINICAL HISTORY: 31 years-old Female presenting with ABDOMINAL PAIN/GI. TECHNIQUE: Portable upright AP view of the chest was obtained. COMPARISON: 02/22/2014. FINDINGS: Cardiomediastinal silhouette normal. Lungs and pleural spaces clear. Osseous structures and upper abdomen normal. IMPRESSION: 1. No acute cardiopulmonary disease. Electronically signed by: Itz Arteaga M.D. 03/18/2017 2:49 PM Dictated Date/Time: 03/18/2017 2:49 PM ABD/PELVIS IV AND ORAL CONT HISTORY: 31 years-old Female acute diffuse abdominal pain. COMPARISON: Pelvic ultrasound 12/01/2016 TECHNIQUE: Multiple axial CT images of the abdomen and pelvis were obtained following the intravenous administration of 120 mL Optiray 320. Oral contrast was also used. A dose lowering technique was used consistent with the principals of VANESSA. FINDINGS: Imaged inferior cardiac chambers are unremarkable. The lung bases are generally clear. There is no pneumoperitoneum identified. Gallbladder is contracted. There is mild amount of periportal edema is nonspecific and may be related to hydration status. The spleen, liver, pancreas and adrenal glands are otherwise normal. The portal vein appears to be patent. The abdominal aorta is normal in course and caliber and is patent. Note is made of the celiac trunk and superior mesenteric artery showing a common origin. Kidneys appear normal. Urinary bladder is mildly distended. Tampon within the vagina is present. There is mild enhancement of the endometrium, likely related to phase of menstrual cycle. Adnexa are unremarkable. There is no bowel obstruction. Majority of the sigmoid colon is collapsed without inflammatory changes to suggest acute diverticulitis or colitis. The appendix is not definitively seen. No secondary evidence of acute appendicitis. Soft tissues are within normal limits. Bones are intact. IMPRESSION: 1. No acute intra-abdominal or intrapelvic abnormality identified. No bowel obstruction or evidence of acute colitis or diverticulitis. 2. The appendix is not definitively seen, however there are no secondary signs of acute appendicitis. 3. Mild periportal edema is nonspecific and may be related to hydration status. 4. Incidental note is made of common origin of the celiac trunk and superior mesenteric artery. The above report was generated using voice recognition software. It may contain grammatical, syntax or spelling errors. Electronically signed by: rEick Roblero M.D. 03/18/2017 5:31 PM Dictated Date/Time: 03/18/2017 5:23 PM Laboratory Results 03/18/17 14:49 Red Blood Count 3.92, Mean Corpuscular Volume 95.7, Mean Corpuscular Hemoglobin 33.4, Mean Corpuscular Hemoglobin Concent 34.9, Mean Platelet Volume 10.5, Neutrophils (%) (Auto) 97.2, Lymphocytes (%) (Auto) 1.8, Monocytes (%) (Auto) 0.7, Eosinophils (%) (Auto) 0.0, Basophils (%) (Auto) 0.0, Neutrophils # (Auto) 21.27, Lymphocytes # (Auto) 0.39, Monocytes # (Auto) 0.15, Eosinophils # (Auto) 0.00, Basophils # (Auto) 0.01 03/18/17 14:49 Test 03/18/17 14:49 White Blood Count 21.88 K/uL (4.8-10.8) Red Blood Count 3.92 M/uL (4.2-5.4) Hemoglobin 13.1 g/dL (12.0-16.0) Hematocrit 37.5 % (37-47) Mean Corpuscular Volume 95.7 fL (80-100) Mean Corpuscular Hemoglobin 33.4 pg (25-34) Mean Corpuscular Hemoglobin Concent 34.9 g/dl (32-36) Platelet Count 332 K/uL (130-400) Mean Platelet Volume 10.5 fL (7.4-10.4) Neutrophils (%) (Auto) 97.2 % Lymphocytes (%) (Auto) 1.8 % Monocytes (%) (Auto) 0.7 % Eosinophils (%) (Auto) 0.0 % Basophils (%) (Auto) 0.0 % Neutrophils # (Auto) 21.27 K/uL (1.4-6.5) Lymphocytes # (Auto) 0.39 K/uL (1.2-3.4) Monocytes # (Auto) 0.15 K/uL (0.11-0.59) Eosinophils # (Auto) 0.00 K/uL (0-0.5) Basophils # (Auto) 0.01 K/uL (0-0.2) RDW Standard Deviation 47.8 fL (36.4-46.3) RDW Coefficient of Variation 13.8 % (11.5-14.5) Immature Granulocyte % (Auto) 0.3 % Immature Granulocyte # (Auto) 0.06 K/uL (0.00-0.02) Anion Gap 11.0 mmol/L (3-11) Est Creatinine Clear Calc Drug Dose 69.8 ml/min Estimated GFR () 95.5 Estimated GFR (Non- 82.4 BUN/Creatinine Ratio 23.3 (10-20) Calcium Level 9.3 mg/dl (8.5-10.1) Total Bilirubin 0.8 mg/dl (0.2-1) Aspartate Amino Transf (AST/SGOT) 9 U/L (15-37) Alanine Aminotransferase (ALT/SGPT) 18 U/L (12-78) Alkaline Phosphatase 75 U/L (45-117) Troponin I < 0.015 ng/ml (0-0.045) Total Protein 7.8 gm/dl (6.4-8.2) Albumin 4.1 gm/dl (3.4-5.0) Globulin 3.7 gm/dl (2.5-4.0) Albumin/Globulin Ratio 1.1 (0.9-2) Lipase 118 U/L (73-393) Laboratory results reviewed by me. Medications Administered Medications (Trade) Dose Ordered Sig/Mari Route Start Time Stop Time Status Last Admin Dose Admin Sodium Chloride 500 ml @ 999 mls/hr Q31M STAT IV 03/18/17 14:32 03/18/17 15:02 DC 03/18/17 14:50 999 MLS/HR Oxycodone HCl (Roxicodone Immediate Rel Tab) 5 mg NOW STAT PO 03/18/17 17:59 03/18/17 18:00 DC 03/18/17 18:14 5 MG Ranitidine HCl (zANTac TAB) 150 mg NOW STAT PO 03/18/17 17:59 03/18/17 18:00 DC 03/18/17 18:13 150 MG Pantoprazole Sodium (Protonix Tab) 40 mg NOW STAT PO 03/18/17 17:59 03/18/17 18:00 DC 03/18/17 18:13 40 MG ECG Indication: abdominal pain Rate (beats per minute): 89 Rhythm: normal sinus Findings: RBBB (incomplete), no acute ischemic change, no ectopy ED Course 1426: The patient was evaluated in room B07. A complete history and physical exam was performed. 1432: Ordered Sodium Chloride 500 ml @ 999 mls/hr IV 1758: Reevaluated the patient. Discussed results and discharge instructions: she verbalized understanding and agreement. The patient is ready for discharge when she receives her medication. 1759: Ordered Protonix Tab 40 mg PO, Zantac Tab 150 mg PO, Oxycodone HCl 5 mg PO Medical Decision Differential diagnosis includes: hiatal hernia, pancreatitis, biliary colic, bowel obstruction, bowel mass, UTI, diverticulitis, pneumonia, musculoskeletal pain There is a significant leukocytosis at 21,000, this could be consistent with infection or just her high Solu-Medrol dosing the last few days. There is no significant electrolyte abnormality, kidney failure, hepatitis or pancreatitis. Chest film does not show any evidence for pneumonia or free air. EKG shows a sinus rhythm, no acute ischemia. Cardiac enzyme testing times one is not consistent with acute cardiac injury. Abdominal and pelvis CT does not show any acute infectious process. There is no bowel obstruction or free air. The patient received IV saline. She was given oral Zantac and oral Protonix. She received 5 mg of oral oxycodone IR. The patient presents with several months of epigastric abdominal pain. She has a known history of reflux as well as a hiatal hernia. I think starting her on reflux meds would be reasonable. She is going to be on Zantac and Prilosec- this should help with gastritis. She will talk with her family doctor and also with GI. If she has fever, worsening pain, vomiting, she can return for reassessment. She was felt stable for discharge home. Impression Primary Impression: Epigastric abdominal pain Scribe Attestation The scribe's documentation has been prepared under my direction and personally reviewed by me in its entirety. I confirm that the note above accurately reflects all work, treatment, procedures, and medical decision making performed by me. Departure Information Dispostion Home / Self-Care Prescriptions Omeprazole (PRILOSEC) 20 Mg Capcr 20 MG PO DAILY, #30 CAP Prov: Papa Devi M.D. 03/18/17 Ranitidine (Zantac) 150 Mg Tab 150 MG PO BID for 7 Days, #14 TAB Prov: Papa Devi M.D. 03/18/17 Referrals No Doctor, Assigned (PCP) Forms Call Back Authorization, HOME CARE DOCUMENTATION FORM, IMPORTANT VISIT INFORMATION Patient Instructions My [facility] Additional Instructions follow with your doctor and GI zantac 2x per day for 1 week prilosec daily for 1 month return for worsening symptoms or fever or vomiting imaging today was all ok heat to the sore areas may help
[2017-03-18 15:09] LABS: HEMATOCRIT 37.5 % (37-47); MEAN CELL VOLUME 95.7 fL (80-100); MEAN CORPUSCULAR HEMOGLOBIN 33.4 pg (25-34); MEAN CORPUSCULAR HGB CONC 34.9 g/dl (32-36); MEAN PLATELET VOLUME 10.5 fL (7.4-10.4); PLATELET COUNT 332 K/uL (130-400); RED BLOOD COUNT 3.92 M/uL (4.2-5.4); WHITE BLOOD COUNT 21.88 K/uL (4.8-10.8)
[2017-03-18 15:27] LABS: BLOOD UREA NITROGEN 21 mg/dl (7-18); BUN/CREATININE RATIO 23.3 (10-20); CALCIUM 9.3 mg/dl (8.5-10.1); CARBON DIOXIDE 23 mmol/L (21-32); CHLORIDE 107 mmol/L (98-107); CREATININE 0.92 mg/dl (0.60-1.20); GLUCOSE 144 mg/dl (70-99); POTASSIUM 3.3 mmol/L (3.5-5.1); SODIUM 141 mmol/L (136-145)
[2017-03-18 15:32] LABS: ALB/GLOB RATIO 1.1 (0.9-2); ALKALINE PHOSPHATASE 75 U/L (45-117); ALT/SGPT 18 U/L (12-78); AST/SGOT 9 U/L (15-37)
[2017-03-18] MEDS ORDERED: OPTIRAY 320 IV PRN (17:00)
--- NOTE | 2017-03-18 17:32 | DIAGNOSTIC IMAGING REPORT ---
ABD/PELVIS IV AND ORAL CONT HISTORY: 31 years-old Female acute diffuse abdominal pain. COMPARISON: Pelvic ultrasound 12/01/2016 TECHNIQUE: Multiple axial CT images of the abdomen and pelvis were obtained following the intravenous administration of 120 mL Optiray 320. Oral contrast was also used. A dose lowering technique was used consistent with the principals of VANESSA. FINDINGS: Imaged inferior cardiac chambers are unremarkable. The lung bases are generally clear. There is no pneumoperitoneum identified. Gallbladder is contracted. There is mild amount of periportal edema is nonspecific and may be related to hydration status. The spleen, liver, pancreas and adrenal glands are otherwise normal. The portal vein appears to be patent. The abdominal aorta is normal in course and caliber and is patent. Note is made of the celiac trunk and superior mesenteric artery showing a common origin. Kidneys appear normal. Urinary bladder is mildly distended. Tampon within the vagina is present. There is mild enhancement of the endometrium, likely related to phase of menstrual cycle. Adnexa are unremarkable. There is no bowel obstruction. Majority of the sigmoid colon is collapsed without inflammatory changes to suggest acute diverticulitis or colitis. The appendix is not definitively seen. No secondary evidence of acute appendicitis. Soft tissues are within normal limits. Bones are intact. IMPRESSION: 1. No acute intra-abdominal or intrapelvic abnormality identified. No bowel obstruction or evidence of acute colitis or diverticulitis. 2. The appendix is not definitively seen, however there are no secondary signs of acute appendicitis. 3. Mild periportal edema is nonspecific and may be related to hydration status. 4. Incidental note is made of common origin of the celiac trunk and superior mesenteric artery. The above report was generated using voice recognition software. It may contain grammatical, syntax or spelling errors. Electronically signed by: Erick Roblero M.D. 03/18/2017 5:31 PM Dictated Date/Time: 03/18/2017 5:23 PM
[2017-03-18 17:45] LABS: BASO ABS # 0.01 K/uL (0-0.2); COMPLETE YES; IG% 0.3 %; LYMPH % 1.8 %; LYMPH ABS # 0.39 K/uL (1.2-3.4); MONO % 0.7 %; NEUT % 97.2 %
[2017-03-18] MEDS ORDERED: PANTOprazole SOD 40 MG TAB PO STA (17:59)
[2017-03-18] MEDS ORDERED: RANITIDINE HCL 150 MG TAB PO STA (17:59)
[2017-03-18] MEDS ORDERED: OXYCODONE HCL IR 5 MG TAB (IMMEDIATE RELEASE) PO STA (17:59)
[2017-03-18] MEDS ORDERED: ZNTT/150 PO (18:03)
[2017-03-18] MEDS ORDERED: PRLSR20 PO (18:03)
[2017-03-18 18:21] VITALS: BP 127/83; PULSE 95; O2SAT 99
[2017-04-25] MEDS ORDERED: HYDR-3983 PO (13:49)
[2017-04-25] MEDS ORDERED: AMOX875T PO (13:52)
== END 2017-03-18 18:20 | disposition home or self-care (01) ==
LOC: C.EDB 14:12
DX: R10.13 Epigastric pain (principal); G35 Multiple sclerosis; Z83.3 Family history of diabetes mellitus; Z82.49 Family history of ischemic heart disease and other diseases of the circulatory system; F17.200 Nicotine dependence, unspecified, uncomplicated

== ENCOUNTER 2017-03-29 16:49 | Emergency (ER) | payer OTHER ==
[~2017-03-29] VITALS: Ht 167.6 cm; Wt 50.0 kg
[~2017-03-29 16:49] MED LIST changes: +HYDR-3983 PO; -IBUP-1451 PO; +PRLSR20 PO
[2017-03-29 16:50] VITALS: Ht 167.6 cm; Wt 50.0 kg
[2017-03-29] MEDS ORDERED: OXYCODONE HCL IR 5 MG TAB (IMMEDIATE RELEASE) PO STA (17:00)
[2017-03-29 17:22] LABS: BASO % 0.5 %; BASO ABS # 0.06 K/uL (0-0.2); COMPLETE YES; HEMATOCRIT 39.4 % (37-47); IG% 0.4 %; LYMPH % 22.9 %; LYMPH ABS # 3.04 K/uL (1.2-3.4); MEAN CELL VOLUME 96.3 fL (80-100); MEAN CORPUSCULAR HEMOGLOBIN 33.3 pg (25-34); MEAN CORPUSCULAR HGB CONC 34.5 g/dl (32-36); MEAN PLATELET VOLUME 9.8 fL (7.4-10.4); MONO % 5.9 %; NEUT % 69.3 %; PLATELET COUNT 328 K/uL (130-400); RED BLOOD COUNT 4.09 M/uL (4.2-5.4); WHITE BLOOD COUNT 13.28 K/uL (4.8-10.8)
[2017-03-29 17:45] LABS: CALCIUM 9.3 mg/dl (8.5-10.1); POTASSIUM 3.3 mmol/L (3.5-5.1)
[2017-03-29] MEDS ORDERED: OPTIRAY 320 IV PRN (17:45)
[2017-03-29 17:48] LABS: ALB/GLOB RATIO 1.1 (0.9-2)
--- NOTE | 2017-03-29 18:15 | DIAGNOSTIC IMAGING REPORT ---
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 Electronically signed by: Bandar Guardado M.D. 03/29/2017 6:29 PM Dictated Date/Time: 03/29/2017 6:[address] NECK WITH INTRAVENOUS CONTRAST CLINICAL HISTORY: Left dental pain, edema. Please extent to left ear TECHNIQUE: Multiaxial CT images of the neck were performed following the use of intravenous contrast. COMPARISON STUDY: Cervical spine CT 12/09/2008. FINDINGS: The visualized brain parenchyma and orbits are unremarkable. The major mucosal airway surfaces are intact. Prevertebral soft tissues and the epiglottis are normal in thickness. The thyroid gland enhances normally. The lung apices are clear. The paranasal sinuses and mastoid air cells are clear. The major cervical vessels enhance normally. Large dental caries within ADA 19 which also demonstrates a tiny periapical lucency measuring 4 mm. There is a 2 mm focus of adjacent cortical breakthrough along the lingual side of the mandible. No adjacent soft tissue abscess. There is mild soft tissue swelling and subcutaneous fat stranding within the left mandibular location. This is likely reactive to the dental caries. No significant lymphadenopathy. IMPRESSION: Large dental caries within ADA 19 which also demonstrates a tiny periapical lucency measuring 4 mm. There is a 2 mm focus of adjacent cortical breakthrough along the lingual side of the mandible. No adjacent soft tissue abscess. There is mild soft tissue swelling and subcutaneous fat stranding within the left mandibular location likely representing a reactive cellulitis. Electronically signed by: Bandar Guardado M.D. 03/29/2017 6:14 PM Dictated Date/Time: 03/29/2017 6:04 PM
[2017-03-29] MEDS ORDERED: AMPICILLIN/SULBACTAM SOD INJ 3,000 MG in SODIUM CHLORIDE 0.9% 100ML 100 ML IV STA (18:18)
[2017-03-29] MEDS ORDERED: HYDROmorphone INJ 0.5 MG/0.5 ML SYR IV STA (18:21)
[2017-03-29] MEDS ORDERED: AMOX875T PO (19:30)
[2017-03-29] MEDS ORDERED: OXYC1TAB3 PO (19:30)
--- NOTE | 2017-03-29 19:32 | EMERGENCY ROOM VISIT NOTE ---
ED Visit Note First contact with patient: 16:53 CHIEF COMPLAINT: "Left side mouth/jaw pain, swelling, infection". HISTORY OF PRESENT ILLNESS: This 31-year-old female patient presented to the emergency department via private vehicle with a progressive toothache for past few days. The patient believes it is coming from left inferior dentition. The pain is now steady and severe and radiates to the face. The patient notes that she has a dentist appointment set up within a month. They rate their pain a 10 /10 and the Tylenol they have been taking has not relieved the pain. She notes minimal left facial swelling. The patient denies any discharge from the mouth. REVIEW OF SYSTEMS: A 6 system review of systems was completed with positives and pertinent negatives listed in the HPI. ALLERGIES: As noted below MEDICATIONS: As noted below PMH: Dental caries, MS SOCIAL HISTORY: Patient lives locally. PHYSICAL EXAM: Vitals are noted on the nurse's note and reviewed by myself. Vital signs stable. Temperature 36.8C orally. GENERAL: 31-year-old female, in no acute distress, nondiaphoretic, well-developed well-nourished. Mouth: The left inferior tooth is very carious and the gum is swollen and tender around it, without any discharge or signs of an abscess. The remainder of the pharynx and tonsils are without erythema, edema, or exudate. The airway is patent. There is minimal left jaw edema, and left neck tenderness. The patient appears uncomfortable and in pain. The patient has overall poor dental hygiene. EARS: External auditory canals clear, tympanic membranes pearly hernández without erythema or effusion bilaterally. 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 Electronically signed by: Bandar Guardado M.D. 03/29/2017 6:29 PM Dictated Date/Time: 03/29/2017 6:[address] NECK WITH INTRAVENOUS CONTRAST CLINICAL HISTORY: Left dental pain, edema. Please extent to left ear TECHNIQUE: Multiaxial CT images of the neck were performed following the use of intravenous contrast. COMPARISON STUDY: Cervical spine CT 12/09/2008. FINDINGS: The visualized brain parenchyma and orbits are unremarkable. The major mucosal airway surfaces are intact. Prevertebral soft tissues and the epiglottis are normal in thickness. The thyroid gland enhances normally. The lung apices are clear. The paranasal sinuses and mastoid air cells are clear. The major cervical vessels enhance normally. Large dental caries within ADA 19 which also demonstrates a tiny periapical lucency measuring 4 mm. There is a 2 mm focus of adjacent cortical breakthrough along the lingual side of the mandible. No adjacent soft tissue abscess. There is mild soft tissue swelling and subcutaneous fat stranding within the left mandibular location. This is likely reactive to the dental caries. No significant lymphadenopathy. IMPRESSION: Large dental caries within ADA 19 which also demonstrates a tiny periapical lucency measuring 4 mm. There is a 2 mm focus of adjacent cortical breakthrough along the lingual side of the mandible. No adjacent soft tissue abscess. There is mild soft tissue swelling and subcutaneous fat stranding within the left mandibular location likely representing a reactive cellulitis. Electronically signed by: Bandar Guardado M.D. 03/29/2017 6:14 PM Dictated Date/Time: 03/29/2017 6:04 PM ED COURSE: Patient was seen and evaluated as above. Previous visits were reviewed. She presents to us today with left facial pain, and swelling. Decision was made to obtain IV access, to evaluate what blood cell count and administer IV antibiotics. 3 g of Unasyn was ordered. CT scan of the neck was also ordered after discussing benefits versus risk. She denied chance of . CT scan results as above. Slightly cytosis. No evidence of kidney failure. No evidence of drainable abscess. She was given oxycodone here for her pain, and then Dilaudid after no relief and verifying etiology on CAT scan. She's been referred to dentistry. She is to return if worsening. She'll be discharged home with OxyIR, as well as Augmentin. She was educated upon worrisome symptoms which to return, had questions prior to discharge, and was discharged home in good condition. She appears stable for outpatient management , and notes that she does not want to stay in the hospital. No evidence of sepsis. Patient with documented morphine allergy, but notes that she can tolerate oxycodone. In the treatment of this patient controlled medication was utilized and therefore the [facility], Prescription Drug Monitoring Program website was utilized to look up this patient. No concerns were identified that would prohibit or alter my treatment decision. In the evaluation and treatment of this patient, the following differential diagnoses were considered: Periapical Abscess, Osteonecrosis of the Jaw, Dental Fracture, Dental Caries, Anatoliy's Angina, Vincent's Angina, Facial Cellulitis. DIAGNOSIS: Odontalgia DISCHARGE INSTRUCTIONS & TREATMENT: Percocet every 6 hours if needed for pain. Amoxicillin 500 mg t.i.d. x 10 days for infection. See a dentist as soon as possible for definitive care. Return sooner if shortness of breath, discharge, or change in vision and hearing occur. Problem List Medical Problems: (1) Multiple sclerosis Status: Chronic Surgical Problems: (1) History of dilation and curettage Status: Resolved (2) History of tonsillectomy Status: Resolved Current/Historical Medications Scheduled Amoxicillin & Pot Clavulanate (Augmentin 875-125 mg), 1 TAB PO BID Amphetamine-Dextroamphetamine 10MG (Adderall 10MG), 10 MG PO BID Ergocalciferol (Vitamin D 66821 Unit), 50,000 INTER.UNIT PO WK Escitalopram Oxalate (Lexapro), 10 MG PO DAILY Escitalopram Oxalate (Lexapro), 20 MG PO DAILY Omeprazole (Prilosec), 20 MG PO DAILY Scheduled PRN Hydrocodone/Acetaminophen 7.5MG/325MG ([place] 7.5MG/325MG), 1 TAB PO DAILY PRN for Pain Oxycodone Ir (Roxicodone Ir), 1-2 TAB PO Q6 PRN for Pain Allergies Coded Allergies: Venlafaxine (Verified Adverse Reaction, Mild, DROWSINESS, 03/18/17) Morphine (Verified Adverse Reaction, Unknown, chest pain, 03/18/17) Vital Signs Date Time Temp Pulse Resp B/P (MAP) Pulse Ox O2 Delivery O2 Flow Rate FiO2 03/29/17 19:41 81 18 121/87 100 Room Air 03/29/17 19:41 36.8 81 18 121/87 100 03/29/17 18:18 86 18 123/86 100 Room Air 03/29/17 16:50 36.8 114 18 127/85 96 Laboratory Results 03/29/17 17:05 Red Blood Count 4.09, Mean Corpuscular Volume 96.3, Mean Corpuscular Hemoglobin 33.3, Mean Corpuscular Hemoglobin Concent 34.5, Mean Platelet Volume 9.8, Neutrophils (%) (Auto) 69.3, Lymphocytes (%) (Auto) 22.9, Monocytes (%) (Auto) 5.9, Eosinophils (%) (Auto) 1.0, Basophils (%) (Auto) 0.5, Neutrophils # (Auto) 9.22, Lymphocytes # (Auto) 3.04, Monocytes # (Auto) 0.78, Eosinophils # (Auto) 0.13, Basophils # (Auto) 0.06 03/29/17 17:05 Test 03/29/17 17:05 White Blood Count 13.28 K/uL (4.8-10.8) Red Blood Count 4.09 M/uL (4.2-5.4) Hemoglobin 13.6 g/dL (12.0-16.0) Hematocrit 39.4 % (37-47) Mean Corpuscular Volume 96.3 fL (80-100) Mean Corpuscular Hemoglobin 33.3 pg (25-34) Mean Corpuscular Hemoglobin Concent 34.5 g/dl (32-36) Platelet Count 328 K/uL (130-400) Mean Platelet Volume 9.8 fL (7.4-10.4) Neutrophils (%) (Auto) 69.3 % Lymphocytes (%) (Auto) 22.9 % Monocytes (%) (Auto) 5.9 % Eosinophils (%) (Auto) 1.0 % Basophils (%) (Auto) 0.5 % Neutrophils # (Auto) 9.22 K/uL (1.4-6.5) Lymphocytes # (Auto) 3.04 K/uL (1.2-3.4) Monocytes # (Auto) 0.78 K/uL (0.11-0.59) Eosinophils # (Auto) 0.13 K/uL (0-0.5) Basophils # (Auto) 0.06 K/uL (0-0.2) RDW Standard Deviation 51.1 fL (36.4-46.3) RDW Coefficient of Variation 14.4 % (11.5-14.5) Immature Granulocyte % (Auto) 0.4 % Immature Granulocyte # (Auto) 0.05 K/uL (0.00-0.02) Anion Gap 7.0 mmol/L (3-11) Est Creatinine Clear Calc Drug Dose 63.8 ml/min Estimated GFR () 86.3 Estimated GFR (Non- 74.5 BUN/Creatinine Ratio 13.0 (10-20) Calcium Level 9.3 mg/dl (8.5-10.1) Total Bilirubin 0.8 mg/dl (0.2-1) Aspartate Amino Transf (AST/SGOT) 9 U/L (15-37) Alanine Aminotransferase (ALT/SGPT) 16 U/L (12-78) Alkaline Phosphatase 76 U/L (45-117) Total Protein 7.8 gm/dl (6.4-8.2) Albumin 4.1 gm/dl (3.4-5.0) Globulin 3.7 gm/dl (2.5-4.0) Albumin/Globulin Ratio 1.1 (0.9-2) Medications Administered Medications (Trade) Dose Ordered Sig/Mari Route Start Time Stop Time Status Last Admin Dose Admin Oxycodone HCl (Roxicodone Immediate Rel Tab) 5 mg NOW STAT PO 03/29/17 17:00 03/29/17 17:04 DC 03/29/17 17:12 5 MG Ampicillin Sodium/ Sulbactam Sodium 3000 mg/Sodium Chloride 108 ml @ 200 mls/hr NOW STAT IV 03/29/17 18:18 03/29/17 18:50 DC 03/29/17 18:35 200 MLS/HR Hydromorphone HCl (Dilaudid Inj) 0.5 mg NOW STAT IV 03/29/17 18:21 03/29/17 18:22 DC 03/29/17 18:36 0.5 MG Departure Information Impression Primary Impression: Dental caries Additional Impression: Hypokalemia Dispostion Home / Self-Care Condition GOOD Prescriptions Oxycodone Ir (Roxicodone Ir) 5 Mg Tab 1-2 TAB PO Q6 Y for Pain, #15 TAB For Initial Treatment Prov: Alonzo Stapleton PA-C 03/29/17 Amoxicillin & Pot Clavulanate (Augmentin 875-125 mg) 1 Tab Tab 1 TAB PO BID for 10 Days, #20 TAB Prov: Alonzo Stapleton PA-C 03/29/17 Referrals Joann Woods DO (PCP) Patient Instructions [facility] Additional Instructions You have been treated in the Emergency Department for Dental Pain. You have received pain medicine in the emergency department which impairs your ability to operate a vehicle. It is illegal for you to drive after receiving these medicines. You have been prescribed Oxy IR to be used for pain control. This is a narcotic medication. You cannot drive or consume alcohol while on this medicine. This medicine should only be used for pain that cannot be controlled with over-the- counter pain medicines. You were prescribed Augmentin to be taken twice daily. This is an antibiotic. All antibiotics have the potential to cause diarrhea. Stop this medication and contact a medical provider if you were to develop any significant adverse side effects including: wheezing, shortness of breath, passing out, vomiting, or a diffuse rash. Always take antibiotics as directed and COMPLETE the ENTIRE course regardless of the improvement of your symptoms. For pain control, you can use the following [id number] medicines: - Regular strength (325mg/tab) Tylenol (acetaminophen) 2 tabs every 4-6 hours as needed. Do not exceed 12 tablets in a 24 hour period. Avoid taking more than 3 grams (3000 mg) of Tylenol per day. This includes any other sources of acetaminophen you may take on a regular basis. Refrain from smoking cigarettes or using chewing tobacco until you have been evaluated by your dentist. Keeping beverages lukewarm and consuming soft foods can decrease your pain. Warm compresses over the affected area may offer some relief. You MUST seek evaluation of your dental pain by a dentist following your visit to the Emergency Department. The Emergency Department is not capable of treating dental issues long-term. You should call your dentist as soon as possible to make an appointment for evaluation of your dental pain. Return to the emergency department if you develop the following symptoms despite treatment course outlined above: fever, intractable pain, increased redness, swelling, or purulent discharge. Please return to the emergency department with any new/concerning symptoms. 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 Electronically signed by: Bandar Guardado M.D. 03/29/2017 6:29 PM Dictated Date/Time: 03/29/2017 6:[address] NECK WITH INTRAVENOUS CONTRAST CLINICAL HISTORY: Left dental pain, edema. Please extent to left ear TECHNIQUE: Multiaxial CT images of the neck were performed following the use of intravenous contrast. COMPARISON STUDY: Cervical spine CT 12/09/2008. FINDINGS: The visualized brain parenchyma and orbits are unremarkable. The major mucosal airway surfaces are intact. Prevertebral soft tissues and the epiglottis are normal in thickness. The thyroid gland enhances normally. The lung apices are clear. The paranasal sinuses and mastoid air cells are clear. The major cervical vessels enhance normally. Large dental caries within ADA 19 which also demonstrates a tiny periapical lucency measuring 4 mm. There is a 2 mm focus of adjacent cortical breakthrough along the lingual side of the mandible. No adjacent soft tissue abscess. There is mild soft tissue swelling and subcutaneous fat stranding within the left mandibular location. This is likely reactive to the dental caries. No significant lymphadenopathy. IMPRESSION: Large dental caries within ADA 19 which also demonstrates a tiny periapical lucency measuring 4 mm. There is a 2 mm focus of adjacent cortical breakthrough along the lingual side of the mandible. No adjacent soft tissue abscess. There is mild soft tissue swelling and subcutaneous fat stranding within the left mandibular location likely representing a reactive cellulitis. Electronically signed by: Bandar Guardado M.D. 03/29/2017 6:14 PM Dictated Date/Time: 03/29/2017 6:04 PM Problem Qualifiers
[2017-03-29 19:41] VITALS: BP 121/87; PULSE 81; TEMP 36.8; O2SAT 100
[2017-04-25] MEDS ORDERED: HYDR-3983 PO (13:49)
[2017-04-25] MEDS ORDERED: AMOX875T PO (13:52)
== END 2017-03-29 19:42 | disposition home or self-care (01) ==
LOC: C.EDB 16:50 → C.EDD 19:42
DX: K02.9 Dental caries, unspecified (principal); E87.6 Hypokalemia; G35 Multiple sclerosis; M26.69 Other specified disorders of temporomandibular joint

== ENCOUNTER 2017-04-24 19:32 | Inpatient (IN) | payer OTHER ==
[~2017-04-24] VITALS: Ht 167.6 cm; Wt 52.6 kg
[~2017-04-24 19:32] MED LIST changes: +LACTATED RINGER'S 1000ML 1,000 ML IV ONE; +OXYC1TAB3 PO
[2017-04-24] MEDS ORDERED: SODIUM CHLORIDE 0.9% 1000ML 1,000 ML IV STA (19:42)
[2017-04-24] MEDS ORDERED: ACETAMINOPHEN IV 100 ML IV STA (19:42)
[2017-04-24] MEDS ORDERED: DEXAMETHASONE SOD INJ 10 MG/ML VIAL IV ONE (19:45)
[2017-04-24] MEDS ORDERED: AMPICILLIN/SULBACTAM SOD INJ 3,000 MG in SODIUM CHLORIDE 0.9% 100ML 100 ML IV ONE (19:45)
--- NOTE | 2017-04-24 19:56 | EMERGENCY ROOM VISIT NOTE ---
History Report prepared by Sanjeev: Josiah Hines Under the Supervision of: Dr. Fermin Reynolds M.D. First contact with patient: 19:39 Chief Complaint: WOUND INFECTION Stated Complaint: CELLULITIS ON LF SIDE OF FACE History of Present Illness The patient is a 31 year old female with MS who presents to the Emergency Room with complaints of a persistent concern for infection on the left side of her face that started yesterday. The patient says that the left side of her face started to hurt yesterday, and the swelling started last night. She says that she was here on March 29 for cellulitis on the left side of her face, and was put on IV antibiotics. She was sent home on Augmentin, and finished the antibiotic round on April 10. She notes that the swelling and pain was mostly resolved after the Augmentin. The patient states that the cellulitis was due to a bad tooth, but she has not been able to take care of her bad tooth due to insurance issues. She is scheduled to see her dentist for the bad tooth in May. The patient states that her current swelling is worse than when she was here in early March, and she adds that she has been having trouble swallowing due to a cough. The patient thinks that she is starting to get bronchitis, as she has a discomfort in her throat when she coughs, and that typically occurs when she starts to get bronchitis. The patient denies any fevers, nausea, vomiting, abdominal pain, or drooling. She notes that she has chronic chills, and she has been having equivocal chills today. The patient states that she was taken off of her medication for MS in September after a shingles outbreak. She sees Dr. Rice for the MS. She denies any chance of . The patient adds that her blood has trouble clotting and so cannot take Ibuprofen. Source of History: patient Onset: Yesterday Position: other (left side of face) Quality: other (concern for infection, swelling) Timing: other (persistent) Associated Symptoms: + cough, No fevers, No nausea, No vomiting, No abdominal pain Note: Associated symptoms: Facial pain on left side. Trouble swallowing, discomfort in throat when coughing. Denies drooling. Review of Systems See HPI for pertinent positives and negatives. A total of ten systems were reviewed and were otherwise negative. Past Medical & Surgical Medical Problems: (1) Multiple sclerosis (2) Odontogenic infection of jaw Surgical Problems: (1) History of dilation and curettage (2) History of tonsillectomy Family History FHx: cancer FHx: diabetes FHx: gallbladder disease FHx: heart disease FHx: hypertension FHx: kidney disease/stones FHx: lung disease Social History Smoking Status: Current Every Day Smoker Alcohol Use: occasionally Drug Use: none Marital Status: in relationship Housing Status: lives with family Occupation Status: employed Current/Historical Medications Scheduled Amphetamine-Dextroamphetamine 10MG (Adderall 10MG), 10 MG PO BID Ergocalciferol (Vitamin D 20650 Unit), 50,000 INTER.UNIT PO WK Escitalopram Oxalate (Lexapro), 10 MG PO DAILY Escitalopram Oxalate (Lexapro), 20 MG PO DAILY Omeprazole (Prilosec), 20 MG PO DAILY Scheduled PRN Hydrocodone/Acetaminophen 7.5MG/325MG ([place] 7.5MG/325MG), 1 TAB PO DAILY PRN for Pain Allergies Coded Allergies: Morphine (Verified Adverse Reaction, Severe, chest pain, 04/24/17) Venlafaxine (Verified Adverse Reaction, Intermediate, DROWSINESS, 04/24/17) Physical Exam Vital Signs Date Time Temp Pulse Resp B/P (MAP) Pulse Ox O2 Delivery O2 Flow Rate FiO2 04/24/17 22:21 88 16 115/81 100 Room Air 04/24/17 20:47 93 132/85 100 Room Air 04/24/17 19:34 36.8 104 16 140/91 99 Room Air Physical Exam GENERAL: Awake, alert, well-appearing, in no distress HENT: Dry mucous membranes. Mild tongue elevation, no trismus. Moderate swelling in left lower jaw extending to submandibular area with crepitus and tenderness to palpation with light touch. No pain with tracheal manipulation. EYES: Normal conjunctiva. Sclera non-icteric. NECK: Supple. No nuchal rigidity. FROM. No JVD. RESPIRATORY: Clear to auscultation. CARDIAC: ST, normal rhythm. Extremities warm and well perfused. Pulses equal. ABDOMEN: Soft, non-distended. No tenderness to palpation. No rebound or guarding. No masses. RECTAL: Deferred. MUSCULOSKELETAL: Chest examination reveals no tenderness. The back is symmetrical on inspection without obvious abnormality. There is no CVA tenderness to palpation. No joint edema. LOWER EXTREMITIES: Calves are equal size bilaterally and non-tender. No edema. No discoloration. NEURO: Normal sensorium. No sensory or motor deficits noted. SKIN: No rash or jaundice noted. Medical Decision & Procedures ER Provider Diagnostic Interpretation: Radiology results as stated below per my review and radiologist interpretation: SOFT TISSUE NECK WITH HISTORY: 31 years-old Female jaw neck swelling pain. Acute neck pain and soft tissue swelling. History of dental caries and facial cellulitis. COMPARISON: CT soft tissue neck 03/29/2017. TECHNIQUE: Multiple axial CT images of the soft tissues of the neck were obtained utilizing 95 mL Optiray 320. A dose lowering technique was used consistent with the principals of VANESSA. FINDINGS: Multifocal periodontal disease is noted with several dental caries present. Periapical cyst within the left second mandibular molar is again noted with cortical erosion involving the medial cortex of the adjacent mandible nicely seen on image 155 which appears similar from prior study. Moderate degenerative changes of the left temporomandibular joint redemonstrated. Mastoid air cells and middle ear cavities are clear. The paranasal sinuses are generally clear. No facial bone fracture identified. The imaged cervical spine appears intact. There is moderate soft tissue swelling with subcutaneous edema and skin thickening involving the left mandibular and submandibular soft tissues which has progressed from prior study dated 03/29/2017. No drainable abscess collections are identified. Mildly prominent likely reactive level 1 lymph nodes are seen measuring up to 5 mm in short axis. Lung apices are clear. The opacified carotid vasculature appears to be within normal limits. IMPRESSION: 1. Multifocal periodontal disease redemonstrated with periapical cyst involving the left second mandibular molar again seen with associated cortical erosion of the adjacent medial mandibular cortex. There is progressive moderate soft tissue swelling and edema of the left mandibular and submandibular tissues which is compatible with cellulitis and phlegmonous change without focal abscess identified. 2. Moderate left temporomandibular joint degenerative changes. The above report was generated using voice recognition software. It may contain grammatical, syntax or spelling errors. Electronically signed by: Erick Roblero M.D. 04/24/2017 9:31 PM Dictated Date/Time: 04/24/2017 9:19 PM CHEST ONE VIEW PORTABLE HISTORY: 31 years-old Female cough acute cough with shortness of breath. Associated acute jaw and neck pain and swelling. COMPARISON: Chest radiograph 03/18/2017 TECHNIQUE: Portable upright AP view of the chest FINDINGS: Cardiomediastinal and hilar silhouettes are within normal limits. No pneumothorax, pleural effusion or focal airspace consolidation. The bones are grossly intact. IMPRESSION: No acute cardiopulmonary process. The above report was generated using voice recognition software. It may contain grammatical, syntax or spelling errors. Electronically signed by: Erick Roblero M.D. 04/24/2017 8:11 PM Dictated Date/Time: 04/24/2017 8:10 PM Laboratory Results 04/24/17 20:15 Red Blood Count 3.57, Mean Corpuscular Volume 96.4, Mean Corpuscular Hemoglobin 33.1, Mean Corpuscular Hemoglobin Concent 34.3, Mean Platelet Volume 10.4, Neutrophils (%) (Auto) 67.4, Lymphocytes (%) (Auto) 21.9, Monocytes (%) (Auto) 9.3, Eosinophils (%) (Auto) 0.8, Basophils (%) (Auto) 0.5, Neutrophils # (Auto) 5.58, Lymphocytes # (Auto) 1.81, Monocytes # (Auto) 0.77, Eosinophils # (Auto) 0.07, Basophils # (Auto) 0.04 04/24/17 20:15 Test 04/24/17 20:15 04/24/17 20:24 White Blood Count 8.28 K/uL (4.8-10.8) Red Blood Count 3.57 M/uL (4.2-5.4) Hemoglobin 11.8 g/dL (12.0-16.0) Hematocrit 34.4 % (37-47) Mean Corpuscular Volume 96.4 fL (80-100) Mean Corpuscular Hemoglobin 33.1 pg (25-34) Mean Corpuscular Hemoglobin Concent 34.3 g/dl (32-36) Platelet Count 278 K/uL (130-400) Mean Platelet Volume 10.4 fL (7.4-10.4) Neutrophils (%) (Auto) 67.4 % Lymphocytes (%) (Auto) 21.9 % Monocytes (%) (Auto) 9.3 % Eosinophils (%) (Auto) 0.8 % Basophils (%) (Auto) 0.5 % Neutrophils # (Auto) 5.58 K/uL (1.4-6.5) Lymphocytes # (Auto) 1.81 K/uL (1.2-3.4) Monocytes # (Auto) 0.77 K/uL (0.11-0.59) Eosinophils # (Auto) 0.07 K/uL (0-0.5) Basophils # (Auto) 0.04 K/uL (0-0.2) RDW Standard Deviation 51.2 fL (36.4-46.3) RDW Coefficient of Variation 14.4 % (11.5-14.5) Immature Granulocyte % (Auto) 0.1 % Immature Granulocyte # (Auto) 0.01 K/uL (0.00-0.02) Anion Gap 9.0 mmol/L (3-11) Est Creatinine Clear Calc Drug Dose 89.4 ml/min Estimated GFR () 122.2 Estimated GFR (Non- 105.5 BUN/Creatinine Ratio 28.7 (10-20) Calcium Level 9.1 mg/dl (8.5-10.1) Magnesium Level 2.0 mg/dl (1.8-2.4) Total Bilirubin 0.4 mg/dl (0.2-1) Direct Bilirubin 0.1 mg/dl (0-0.2) Aspartate Amino Transf (AST/SGOT) 13 U/L (15-37) Alanine Aminotransferase (ALT/SGPT) 13 U/L (12-78) Alkaline Phosphatase 73 U/L (45-117) Total Protein 7.3 gm/dl (6.4-8.2) Albumin 3.9 gm/dl (3.4-5.0) Human Chorionic Gonadotropin, Qual NEG (NEG) Bedside Lactic Acid Venous 0.69 mmol/L (0.90-1.70) Laboratory results reviewed by me Medications Administered Medications (Trade) Dose Ordered Sig/Mari Route Start Time Stop Time Status Last Admin Dose Admin Sodium Chloride 1,000 ml @ 999 mls/hr Q1H1M STAT IV 04/24/17 19:42 04/24/17 20:42 DC 04/24/17 20:19 999 MLS/HR Ampicillin Sodium/ Sulbactam Sodium 3000 mg/Sodium Chloride 108 ml @ 200 mls/hr ONE ONCE IV 04/24/17 19:45 04/24/17 20:17 DC 04/24/17 20:20 200 MLS/HR Acetaminophen 100 ml @ 400 mls/hr NOW STAT IV 04/24/17 19:42 04/24/17 19:56 DC 04/24/17 20:57 400 MLS/HR Dexamethasone Sodium Phosphate (Decadron Inj) 10 mg NOW ONCE IV 04/24/17 19:45 04/24/17 19:56 DC 04/24/17 20:16 10 MG Potassium Chloride (Klor-Con M10) 40 meq NOW STAT PO 04/24/17 22:04 04/24/17 22:09 DC 04/24/17 22:16 40 MEQ Fentanyl Citrate (Fentanyl Inj) 50 mcg NOW STAT IV 04/24/17 22:38 04/24/17 22:39 DC 04/24/17 22:46 50 MCG Lactated Ringer's 1,000 ml @ 75 mls/hr [id number] ONCE IV 04/24/17 00:00 05/24/17 22:14 04/25/17 00:29 75 MLS/HR ED Course 1939: The patient was evaluated in room C6. A complete history and physical exam was performed. 1941: Ordered NSS 1000 ml @ 999 mls/hr IV. 1944: Ordered Decadron Inj 10 mg IV, Ampicillin Sodium/Sulbactam Sodium 3000 mg/ Sodium Chloride 108 ml @ 200 mls/hr IV. 2156: Upon reexamination, the patient was resting. I discussed the test results and treatment plan with her. She expressed understanding and agreement. The patient will be evaluated for further management. 2199: I discussed the patient with Dr. Nathalie Lester day care assistant - he will evaluate the patient for further treatment. 3: I discussed the patient with Dr. Estrella - [facility] oral surgery. 9: I discussed the patient with Dr. Huffman - [facility] oral surgery - he will see the patient tomorrow. The admitting team will formally consult him in the morning. 2309: I reevaluated and updated the patient. Medical Decision I reviewed the patient's past medical history, medications, and the nursing notes as described above. Differential diagnosis includes but is not limited to: Anatoliy's angina, cellulitis, dental abscess, osteomyelitis, peritonsillar abscess, rectal pharyngeal abscess. Patient is a 31-year-old woman with a past medical history of MS previously on immunologic treatment but not currently as well as a recent ED visit for dental infection responsive antibiotics presents emergency Department with acute onset left jaw and submandibular swelling over the past 24 hours. On exam the patient has mild tongue elevation. No trismus or stridor on auscultation. Has significant edema in the left mandibular and submandibular areas with crepitus. Presentation concerning for Anatoliy angina. WBC within normal limits. Her CT scan showing multifocal periodontal disease associated phlegmon within the submandibular area. Airway otherwise patent. She was given Unasyn, dexamethasone, analgesia. She was admitted to hospital medicine for further management and IV antibiotics and oral surgery consultation in the a.m. I discussed initially d/w Dr. Estrella of plastic surgery who is on-call for oral surgery but since dental infection would need to be managed by Oral surgery. Thus, I d/w Dr. Huffman, oral surgery, and he states that they are available to see the patient in the morning. Admitting team to formally consult in AM. Medication Reconcilliation Current Medication List: was personally reviewed by me Blood Pressure Screening Patient's blood pressure: Elevated blood pressure Blood pressure disposition: Elevated BP felt to be situational Consults Time Called: 2156 Consulting Physician: Dr. Nathalie Lester day care assistant Returned Call: 2199 I discussed the patient with Dr. Nathalie Lester day care assistant - he will evaluate the patient for further treatment. Additional Consults: Time Called: 2199 Consulted Physician: Dr. Estrella [facility] oral surgery Returned Call: 2222 Additional Comments: I discussed the patient with Dr. Sameer VILLAGOMEZ oral surgery. Time Called: 2222 Consulted Physician: Dr. Huffman [facility] oral surgery Returned Call: 2228 Additional Comments: I discussed the patient with Dr. Huffman [facility] oral surgery - he will see the patient tomorrow. The admitting team will formally consult him in the morning. Impression Primary Impression: Anatoliy's angina Scribe Attestation The scribe's documentation has been prepared under my direction and personally reviewed by me in its entirety. I confirm that the note above accurately reflects all work, treatment, procedures, and medical decision making performed by me. Departure Information Dispostion Being Evaluated By Hospitalist Referrals No Doctor, Assigned (PCP) Patient Instructions My [facility]
--- NOTE | 2017-04-24 20:12 | DIAGNOSTIC IMAGING REPORT ---
CHEST ONE VIEW PORTABLE HISTORY: 31 years-old Female cough acute cough with shortness of breath. Associated acute jaw and neck pain and swelling. COMPARISON: Chest radiograph 03/18/2017 TECHNIQUE: Portable upright AP view of the chest FINDINGS: Cardiomediastinal and hilar silhouettes are within normal limits. No pneumothorax, pleural effusion or focal airspace consolidation. The bones are grossly intact. IMPRESSION: No acute cardiopulmonary process. The above report was generated using voice recognition software. It may contain grammatical, syntax or spelling errors. Electronically signed by: Erick Roblero M.D. 04/24/2017 8:11 PM Dictated Date/Time: 04/24/2017 8:10 PM
[2017-04-24] MEDS ORDERED: OPTIRAY 320 IV PRN (20:15)
[2017-04-24 20:33] LABS: BASO % 0.5 %; BASO ABS # 0.04 K/uL (0-0.2); COMPLETE YES; EOS % 0.8 %; HEMATOCRIT 34.4 % (37-47); IG% 0.1 %; LYMPH % 21.9 %; LYMPH ABS # 1.81 K/uL (1.2-3.4); MEAN CELL VOLUME 96.4 fL (80-100); MEAN CORPUSCULAR HEMOGLOBIN 33.1 pg (25-34); MEAN CORPUSCULAR HGB CONC 34.3 g/dl (32-36); MEAN PLATELET VOLUME 10.4 fL (7.4-10.4); MONO % 9.3 %; NEUT % 67.4 %; PLATELET COUNT 278 K/uL (130-400); RED BLOOD COUNT 3.57 M/uL (4.2-5.4); WHITE BLOOD COUNT 8.28 K/uL (4.8-10.8)
[2017-04-24 20:44] LABS: BUN/CREATININE RATIO 28.7 (10-20); CALCIUM 9.1 mg/dl (8.5-10.1); CREATININE 0.75 mg/dl (0.60-1.20); POTASSIUM 3.2 mmol/L (3.5-5.1)
[2017-04-24] MEDS ORDERED: PRLSR20 PO (20:44)
[2017-04-24 21:06] LABS: PREG INTERNAL NEGATIVE QC NEG CLEAR BACKGROUND; PREG INTERNAL POSITIVE QC POS CONTROL LINE
--- NOTE | 2017-04-24 21:32 | DIAGNOSTIC IMAGING REPORT ---
SOFT TISSUE NECK WITH HISTORY: 31 years-old Female jaw neck swelling pain. Acute neck pain and soft tissue swelling. History of dental caries and facial cellulitis. COMPARISON: CT soft tissue neck 03/29/2017. TECHNIQUE: Multiple axial CT images of the soft tissues of the neck were obtained utilizing 95 mL Optiray 320. A dose lowering technique was used consistent with the principals of VANESSA. FINDINGS: Multifocal periodontal disease is noted with several dental caries present. Periapical cyst within the left second mandibular molar is again noted with cortical erosion involving the medial cortex of the adjacent mandible nicely seen on image 155 which appears similar from prior study. Moderate degenerative changes of the left temporomandibular joint redemonstrated. Mastoid air cells and middle ear cavities are clear. The paranasal sinuses are generally clear. No facial bone fracture identified. The imaged cervical spine appears intact. There is moderate soft tissue swelling with subcutaneous edema and skin thickening involving the left mandibular and submandibular soft tissues which has progressed from prior study dated 03/29/2017. No drainable abscess collections are identified. Mildly prominent likely reactive level 1 lymph nodes are seen measuring up to 5 mm in short axis. Lung apices are clear. The opacified carotid vasculature appears to be within normal limits. IMPRESSION: 1. Multifocal periodontal disease redemonstrated with periapical cyst involving the left second mandibular molar again seen with associated cortical erosion of the adjacent medial mandibular cortex. There is progressive moderate soft tissue swelling and edema of the left mandibular and submandibular tissues which is compatible with cellulitis and phlegmonous change without focal abscess identified. 2. Moderate left temporomandibular joint degenerative changes. The above report was generated using voice recognition software. It may contain grammatical, syntax or spelling errors. Electronically signed by: Erick Roblero M.D. 04/24/2017 9:31 PM Dictated Date/Time: 04/24/2017 9:19 PM
[2017-04-24] MEDS ORDERED: POTASSIUM CHLORIDE 10 MEQ TABCR PO STA (22:04)
[2017-04-24] MEDS ORDERED: LACTATED RINGER'S 1000ML 1,000 ML IV SCH (22:15)
[2017-04-24] MEDS ORDERED: FENTANYL CITRATE INJ 50 MCG/1 ML 2 ML VIAL IV STA (22:38)
[2017-04-24] MEDS ORDERED: IBUPROFEN 200 MG TAB PO PRN (23:00)
[2017-04-24] MEDS ORDERED: KETOROLAC TROMETHAMINE 15 MG/ML VIAL IV. PRN (23:00)
[2017-04-24] MEDS ORDERED: ACETAMINOPHEN 325 MG TAB PO PRN (23:00)
[2017-04-24] MEDS ORDERED: ONDANSETRON INJ 2 MG/ML 2 ML VIAL IV PRN (23:00)
[2017-04-24] MEDS ORDERED: AMPICILLIN/SULBACTAM CONSULT ACTIVE PRN ×2 (23:15)
[2017-04-24 23:45] VITALS: BP 128/86; PULSE 74; TEMP 37.1; O2SAT 100; Ht 167.6 cm; Wt 52.6 kg
--- NOTE | 2017-04-25 03:42 | HISTORY & PHYSICAL EXAMINATION ---
DATE OF ADMISSION: 04/24/2017 PRIMARY CARE PHYSICIAN: Dr. Woods. CHIEF COMPLAINT: Left jaw swelling. HISTORY OF PRESENT ILLNESS: History obtained from patient and records. Medical history significant for multiple sclerosis, cervical cancer status post surgery, ongoing tobacco abuse. Recent ER visit last month for left jaw swelling attributed to the carious dentition. Patient's soft tissue neck CT showed a 2 mm focus of cortical breakthrough on the lower side of mandible. No adjacent soft tissue abscess, mild soft tissue swelling, subcutaneous fat stranding with active cellulitis. Patient discharged on Augmentin, oxycodone medications. Improved swelling. Patient making arrangements to see a dentist w/ her insurance. Tentative appointment for next month as per patient. Yesterday she noted tightening of skin from under the L jaw, pain, progressive swelling, some difficulty opening mouth. No fever, some chills. No chest pain, no shortness of breath. Some trouble opening the mouth. Patient brought to the Emergency Room. CAT scan showed : Multifocal periodontal disease redemonstrated with periapical cyst involving the left second mandibular molar again seen with associated cortical erosion of the adjacent medial mandibular cortex. There is progressive moderate soft tissue swelling and edema of the left mandibular and submandibular tissues which is compatible with cellulitis and phlegmonous change without focal abscess identified. IV Unasyn and Decadron administered at the ER. MEDICAL HISTORY: As above. Last visit at [facility] 2017. MS active but medication on hold as per patient requests due to plans to get . SURGERIES: Gynecologic procedures, ear surgeries. HOME MEDICATIONS: As above. Adderall, vitamin D, Lexapro, Vicodin, Prilosec. ALLERGIES: MORPHINE, EFFEXOR. FAMILY HISTORY: MS. PERSONAL AND SOCIAL HISTORY: Half pack daily. No chronic ETOH intake. Disabled. REVIEW OF SYSTEMS: As per HPI, all other ROS negative. PHYSICAL EXAMINATION: VITAL SIGNS: Blood pressure was noted to be 121/87, pulse rate 81, RR 18, temperature 36.8, sats 100 on room air. GENERAL: Noted to be slightly uncomfortable, no respiratory distress. Hyposthenic. SKIN: Pallor. HEENT: Pale palpebral conjunctivae. Dry mucosa. Some limitation of mouth opening, NECK : Tender swelling left submandibular area. NECK: Supple. CHEST: Clear to auscultation. HEART: Regular rate and rhythm. ABDOMEN: Soft. EXTREMITIES: No edema. No tenderness NEUROLOGIC: No gross focality. Gait and stance not assessed. LABORATORY: Hemoglobin 11.8, hematocrit 34.4, white cells 9, platelets noted to be 278. Sodium noted to be 140, potassium 3.2, chloride 105, CO2 26, BUN 22, creatinine 1.5, glucose 89. CT soft tissue neck as above. ASSESSMENT: 1. Recurrent odontogenic infection patient not septic. 2. hx multiple sclerosis Patient currently not on maintenance medication due to desire for as per outpatient Neurology note. 3. Hypokalemia. 4. Anemia. 5. History cervical cancer status post surgery 6. Ongoing tobacco abuse. 7. Malnutrition (low BMI) PLAN: F Unasyn Santos-maxillofacial surgery consult. ER physician already in touch with Dr. Huffman. Local measures for cellulitis. Replace potassium. Anemia workup. Nicotine patch. Nutrition consult RE low BMI DVT prophylaxis, SCDs RE anemia. Full code. MTDD
[2017-04-25] MEDS: AMPICILLIN/SULBACTAM SOD INJ 3,000 MG in SODIUM CHLORIDE 0.9% 100ML 100 ML IV SCH ×2 (04:12→10:32)
[2017-04-25] MEDS: HYDROCODONE/ACETAMINOPHEN 7.5/325MG TAB PO PRN ×3 (04:21→14:12)
[2017-04-25] MEDS: AMPHETAMINE ASP/SULF/DEXTRAMPH 10 MG TAB PO SCH ×2 (05:40→14:12)
[2017-04-25 06:37] LABS: INR 1.1 (0.9-1.1); PARTIAL THROMBOPLASTIN RATIO 1.2; PROTHROMBIN TIME (PATIENT) 11.4 SECONDS (9.0-12.0)
[2017-04-25 06:57] VITALS: BP 119/77; PULSE 103; TEMP 36.8; O2SAT 95
[2017-04-25 07:15] LABS: BUN/CREATININE RATIO 16.9 (10-20); CALCIUM 8.6 mg/dl (8.5-10.1); CREATININE 0.85 mg/dl (0.60-1.20); POTASSIUM 4.1 mmol/L (3.5-5.1)
[2017-04-25 07:21] LABS: FERRITIN 29.3 ng/ml (8.0-388.0)
[2017-04-25] MEDS ORDERED: ESCITALOPRAM OXALATE 10 MG TAB PO SCH (09:00)
[2017-04-25] MEDS ORDERED: PANTOprazole SOD 40 MG TAB PO SCH (09:00)
[2017-04-25] MEDS ORDERED: ESCITALOPRAM OXALATE 20 MG TAB PO SCH (09:00)
[2017-04-25] MEDS ORDERED: NICOTINE 14 MG/24 HR TDSY TD SCH (09:00)
--- NOTE | 2017-04-25 10:36 | DIAGNOSTIC IMAGING REPORT ---
PANELIPSE CLINICAL HISTORY: Need to determine the extent of her carious and infect teeth COMPARISON STUDY: Neck CT April 24, 2013. FINDINGS: Right first mandibular molar is absent. There is a periapical lucency associated with the left second mandibular tooth, tooth #18. No additional periapical lucencies are identified on this examination. IMPRESSION: Periapical lucency of the left second mandibular molar, tooth #18. Electronically signed by: Checo Echeverria M.D. 04/25/2017 10:35 AM Dictated Date/Time: 04/25/2017 10:34 AM
[2017-04-25 12:00] VITALS: PULSE 95
[2017-04-25 12:06] LABS: HEMATOCRIT 35.1 % (37-47)
--- NOTE | 2017-04-25 12:31 | Progress Note ---
Internal Med Progress Note Date of Service: Apr 25, 2017. Provider Documentation: SUBJECTIVE: Seen and examined at bedside States left jaw pain is controlled Denies SOB, dysphagia, Chest pain Eager to get discharged No other complaints OBJECTIVE: Vital Signs-as noted below Physical Exam: General Appearance:Moderately built and nourished, no apparent distress Head: normocephalic, Atraumatic, left submandibular/neck swelling Eyes: normal inspection, EOMI, PERRL Neck: supple, Trachea midline Respiratory/Chest: Normal breath sounds, CTA Cardiovascular: S1, S2, No murmur Abdomen/GI:Soft, Non tender, Bowel sounds present Extremities/Musculoskelatal:normal inspection, no edema Neurologic/Psych:grossly no focal neurological deficits Skin: normal color, warm Lab data as noted below. 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 DVT Px: SCDs Code Status: Full code Disposition: Plan to discharge home when medically stable Follow up with on 04/29/17 at 11:00am Complete the antibiotic course as prescribed Follow up with your Oral surgeon for tooth extraction as advised Seek immediate medical attention if your symptoms reoccur or worsen Vital Signs: Date Time Temp Pulse Resp B/P (MAP) Pulse Ox O2 Delivery O2 Flow Rate FiO2 04/25/17 07:40 Room Air 04/25/17 06:57 36.8 103 18 119/77 (91) 95 Room Air 04/25/17 00:30 Room Air 04/24/17 23:45 37.1 74 16 128/86 100 Room Air 04/24/17 23:14 89 20 116/69 97 Room Air 04/24/17 22:21 88 16 115/81 100 Room Air 04/24/17 20:47 93 132/85 100 Room Air 04/24/17 19:34 36.8 104 16 140/91 99 Room Air Lab Results: Results Past 24 Hours Test 04/24/17 20:15 04/24/17 20:24 04/25/17 06:03 04/25/17 11:49 Range/Units White Blood Count 8.28 4.8-10.8 K/uL Red Blood Count 3.57 4.2-5.4 M/uL Hemoglobin 11.8 12.3 12.0-16.0 g/dL Hematocrit 34.4 35.1 37-47 % Mean Corpuscular Volume 96.4 80-100 fL Mean Corpuscular Hemoglobin 33.1 25-34 pg Mean Corpuscular Hemoglobin Concent 34.3 32-36 g/dl Platelet Count 278 130-400 K/uL Mean Platelet Volume 10.4 7.4-10.4 fL Neutrophils (%) (Auto) 67.4 % Lymphocytes (%) (Auto) 21.9 % Monocytes (%) (Auto) 9.3 % Eosinophils (%) (Auto) 0.8 % Basophils (%) (Auto) 0.5 % Neutrophils # (Auto) 5.58 1.4-6.5 K/uL Lymphocytes # (Auto) 1.81 1.2-3.4 K/uL Monocytes # (Auto) 0.77 0.11-0.59 K/uL Eosinophils # (Auto) 0.07 0-0.5 K/uL Basophils # (Auto) 0.04 0-0.2 K/uL RDW Standard Deviation 51.2 36.4-46.3 fL RDW Coefficient of Variation 14.4 11.5-14.5 % Immature Granulocyte % (Auto) 0.1 % Immature Granulocyte # (Auto) 0.01 0.00-0.02 K/uL Sodium Level 140 138 136-145 mmol/L Potassium Level 3.2 4.1 3.5-5.1 mmol/L Chloride Level 105 110 98-107 mmol/L Carbon Dioxide Level 26 23 21-32 mmol/L Anion Gap 9.0 5.0 3-11 mmol/L Blood Urea Nitrogen 22 14 7-18 mg/dl Creatinine 0.75 0.85 0.60-1.20 mg/dl Est Creatinine Clear Calc Drug Dose 89.4 78.9 ml/min Estimated GFR () 122.2 105.1 Estimated GFR (Non- 105.5 90.7 BUN/Creatinine Ratio 28.7 16.9 10-20 Random Glucose 89 150 70-99 mg/dl Calcium Level 9.1 8.6 8.5-10.1 mg/dl Magnesium Level 2.0 1.8-2.4 mg/dl Total Bilirubin 0.4 0.2-1 mg/dl Direct Bilirubin 0.1 0-0.2 mg/dl Aspartate Amino Transf (AST/SGOT) 13 15-37 U/L Alanine Aminotransferase (ALT/SGPT) 13 12-78 U/L Alkaline Phosphatase 73 45-117 U/L Total Protein 7.3 6.4-8.2 gm/dl Albumin 3.9 3.4-5.0 gm/dl Human Chorionic Gonadotropin, Qual NEG NEG Bedside Lactic Acid Venous 0.69 0.90-1.70 mmol/L Absolute Reticulocyte Count 0.04 0.02-0.10 10^6/uL Percent Reticulocyte Count 1.0 0.5-2.0 % Prothrombin Time 11.4 9.0-12.0 SECONDS Prothromb Time International Ratio 1.1 0.9-1.1 Activated Partial Thromboplast Time 29.9 21.0-31.0 SECONDS Partial Thromboplastin Ratio 1.2 Iron Level 23 35-150 mcg/dl Total Iron Binding Capacity 311 250-450 mcg/dl Transferrin 240 200-360 mg/dl Transferrin % Saturation 7 15-50 % Ferritin 29.3 8.0-388.0 ng/ml Vitamin B12 Level 404 211-911 pg/mL Folate 9.99 >5.38 ng/mL Microbiology Results 04/24/17 Blood Culture, Received Pending 04/24/17 Blood Culture, Received Pending
[2017-04-25] MEDS ORDERED: HYDR-3983 PO (13:49)
[2017-04-25] MEDS ORDERED: AMOX875T PO (13:52)
--- NOTE | 2017-04-25 13:55 | Discharge Summary ---
Discharge Summary Date of Service Apr 25, 2017. Discharge Summary Admission Date: Apr 24, 2017 at 22:38 Discharge Date: Apr 25, 2017 Discharge Disposition: Home Principal Diagnosis: Recurrent odontogenic infection Procedures: CT neck: 1. Multifocal periodontal disease redemonstrated with periapical cyst involving the left second mandibular molar again seen with associated cortical erosion of the adjacent medial mandibular cortex. There is progressive moderate soft tissue swelling and edema of the left mandibular and submandibular tissues which is compatible with cellulitis and phlegmonous change without focal abscess identified. 2. Moderate left temporomandibular joint degenerative changes. Dental X ray: Periapical lucency of the left second mandibular molar, tooth #18. CXR: No acute cardiopulmonary process. Consultations: Oromaxillary surgery Pending Studies/Follow-Up: Follow up with on 04/29/17 at 11:00am Complete the antibiotic course as prescribed Follow up with your Oral surgeon for tooth extraction as advised Seek immediate medical attention if your symptoms reoccur or worsen Medication Reconciliation New Medications: Amoxicillin & Pot Clavulanate (Augmentin 875-125 mg) 1 Tab Tab 1 TAB PO BID for 10 Days, #20 TAB Changed Medications: Hydrocodone/Acetaminophen 7.5MG/325MG ([place] 7.5MG/325MG) Tab 1 TAB PO Q8H PRN for Pain for 3 Days, #10 TAB (Changed from: DAILY) PRN PAIN Continued Medications: Amphetamine-Dextroamphetamine 10MG (Adderall 10MG) 1 Tab Tab 10 MG PO BID, TAB Ergocalciferol (Vitamin D 80418 Unit) 50,000 Unit Cap 13163 INTER.UNIT PO WK, CAP TAKE THIS MEDICATION EVERY WEDNESDAY Escitalopram Oxalate (Lexapro) 10 Mg Tab 10 MG PO DAILY, TAB TAKE ONE 10 MG TABLET ALONG WITH ONE 20 MG TABLET TO EQUAL DAILY DOSE OF 30 MG Escitalopram Oxalate (Lexapro) 20 Mg Tab 20 MG PO DAILY, TAB TAKE ONE 20 MG TABLET ALONG WITH ONE 10 MG TABLET TO EQUAL DAILY DOSE OF 30 MG Omeprazole (Prilosec) 20 Mg Capcr 20 MG PO DAILY, CAP Admission Information HPI (per Admitting provider): CHIEF COMPLAINT: Left jaw swelling. HISTORY OF PRESENT ILLNESS: History obtained from patient and records. Medical history significant for multiple sclerosis, cervical cancer status post surgery, ongoing tobacco abuse. Recent ER visit last month for left jaw swelling attributed to the carious dentition. Patient's soft tissue neck CT showed a 2 mm focus of cortical breakthrough on the lower side of mandible. No adjacent soft tissue abscess, mild soft tissue swelling, subcutaneous fat stranding with active cellulitis. Patient discharged on Augmentin, oxycodone medications. Improved swelling. Patient making arrangements to see a dentist w/ her insurance. Tentative appointment for next month as per patient. Yesterday she noted tightening of skin from under the L jaw, pain, progressive swelling, some difficulty opening mouth. No fever, some chills. No chest pain, no shortness of breath. Some trouble opening the mouth. Patient brought to the Emergency Room. CAT scan showed : Multifocal periodontal disease redemonstrated with periapical cyst involving the left second mandibular molar again seen with associated cortical erosion of the adjacent medial mandibular cortex. There is progressive moderate soft tissue swelling and edema of the left mandibular and submandibular tissues which is compatible with cellulitis and phlegmonous change without focal abscess identified. IV Unasyn and Decadron administered at the ER. Physical Exam (per Admitting): PHYSICAL EXAMINATION: VITAL SIGNS: Blood pressure was noted to be 121/87, pulse rate 81, RR 18, temperature 36.8, sats 100 on room air. GENERAL: Noted to be slightly uncomfortable, no respiratory distress. Hyposthenic. SKIN: Pallor. HEENT: Pale palpebral conjunctivae. Dry mucosa. Some limitation of mouth opening, NECK : Tender swelling left submandibular area. NECK: Supple. CHEST: Clear to auscultation. HEART: Regular rate and rhythm. ABDOMEN: Soft. EXTREMITIES: No edema. No tenderness NEUROLOGIC: No gross focality. Gait and stance not assessed. 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 Discharge Instructions Discharge Instructions Date of Service Apr 25, 2017. Admission Reason for Admission: Odontogenic Infection Of Jaw Discharge Discharge Diagnosis / Problem: Recurrent odontogenic infection Discharge Goals Goal(s): Decrease discomfort, Improve function Activity Recommendations Activity Limitations: resume your previous activity Exercise/Sports Limitations: as tolerated Driving or Machine Use: Do not drive until cleared by your primary care physician . Instructions / Follow-Up Instructions / Follow-Up Follow up with on 04/29/17 at 11:00am Complete the antibiotic course as prescribed Follow up with your Oral surgeon for tooth extraction as advised Seek immediate medical attention if your symptoms reoccur or worsen Current Hospital Diet Patient's current hospital diet: Regular Diet Discharge Diet Recommended Diet: Regular Diet Pending Studies Studies pending at discharge: yes List of pending studies: Blood cultures Medical Emergencies . Who to Call and When: Medical Emergencies: If at any time you feel your situation is an emergency, please call 911 immediately. . Non-Emergent Contact Non-Emergency issues call your: Primary Care Provider, Surgeon Call Non-Emergent contact if: you have a fever, your pain is not controlled, your pain is worsening, your pain is unusual for you, your pain is concerning you, you have any medication questions Seek immediate medical attention if your symptoms reoccur or worsen . . "Provider Documentation" section prepared by Segundo Mosquera. . VTE Core Measure Inpt VTE Proph given/why not?: SCD's <Electronically signed by Segundo Mosquera MD> Signed: 04/25/17 4428 Signed: The status of this report is Signed * If report status is Draft, the document has not been finalized by the responsible provider.
[2017-04-25 14:14] VITALS: BP 119/77; PULSE 95; TEMP 36.8; O2SAT 95
--- NOTE | 2017-04-27 08:10 | CONSULTATION REPORT ---
DATE OF CONSULTATION: 04/25/2017 I was called from the Emergency Room on Wednesday night, 04/24/2017 with a request to evaluate Ms. Nikki Santizo. It was the Emergency Room physician's desire to have Ms. Santizo admitted to the hospital for evaluation and treatment of a left mandibular swelling. According to the CT scan, there was no active abscess formation, but the patient had a very soft cellulitis of the facial area with redness and hardness to the left submandibular area. The cause of this swelling was from a few carious teeth in the lower left side. The patient did not have any problems with swallowing, but the Emergency Room staff was concerned with the progression of the swelling. The patient was admitted to the hospitalist service at [facility] and I saw her approximately 8:00 a.m. on 04/25/2017. When I saw Ms. Jordan, she was doing quite well this morning. The antibiotics and the fluid hydration improved her dramatically. She had some trismus due to the fact of the swelling and had acute tenderness of the left mandibular area. The area was slightly red. Intraorally, there was no swelling in the floor of the mouth but there was some swelling on the facial aspect of the lower mandibular, left teeth. The patient did not complain of any swallowing problems and had no breathing problems, and did not have any paresthesia to the lower left lip. At this time, I reviewed her past medical history which is significant for history of multiple sclerosis. In addition, I had the opportunity to review the CT scan and I agree with the radiologist's initial report. At this time, I discussed with Ms. Jordan that the tooth in question needs to be removed because in my opinion, it is nonrestorable. I gave her my phone number and address and told to call my office as soon as she is discharged from [facility], so we can arrange for outpatient followup care as well as the removal of this tooth under IV sedation. I then discussed with the nurse in charge to please inform the hospitalist that in my opinion Ms. Jordan can be discharged on oral antibiotics and that I also ordered a Panorex x-ray, so we could be more precise which tooth is the offending tooth. At this time, the patient agreed to the above-mentioned treatment plan. Hopefully, Ms. Jordan will call our office, so we can get the tooth out. I did stress to her that this is the second or third time that she developed swelling in the area. She could not wait any longer and must get to the tooth out before she has another episode of acute facial swelling. Thank you very much for allowing me to participate in the care of this patient.
== END 2017-04-25 14:53 | disposition home or self-care (01) | DRG 158 ==
LOC: C.EDB 19:33 → C.MSN 22:38 → ENRESERV 23:09
PROVIDERS: ADMIT Family Medicine; ATTEND Internal Medicine
DX: K04.99 Other diseases of pulp and periapical tissues (principal); E46 Unspecified protein-calorie malnutrition; G35 Multiple sclerosis; E87.6 Hypokalemia; Z85.41 Personal history of malignant neoplasm of cervix uteri; F17.200 Nicotine dependence, unspecified, uncomplicated

== ENCOUNTER → 2017-07-28 | Outpatient (CLI) | payer OTHER ==
[~2017-07-28] MED LIST changes: -LACTATED RINGER'S 1000ML 1,000 ML IV ONE; -OXYC1TAB3 PO
== END | disposition home or self-care (01) ==
LOC: C.LAB1850 16:50
PROVIDERS: ATTEND Obstetrics & Gynecology
DX: Z34.90 Encounter for supervision of normal pregnancy, unspecified, unspecified trimester (principal)

== ENCOUNTER → 2017-08-27 | Outpatient (CLI) | payer OTHER | END | disposition home or self-care (01) | LOC: C.PAPS 13:18 | PROVIDERS: ATTEND Obstetrics & Gynecology | DX: O99.351 Diseases of the nervous system complicating pregnancy, first trimester (principal) ==

== ENCOUNTER → 2017-08-27 | Outpatient (CLI) | payer OTHER ==
[~2017-08-27] MED LIST changes: +FRRS300 PO
[2017-08-27 12:23] LABS: BASO % 0.7 %; BASO ABS # 0.06 K/uL (0-0.2); EOS % 1.1 %; HEMATOCRIT 36.2 % (37-47); HEMOGLOBIN 12.3 g/dL (12.0-16.0); IG# 0.03 K/uL (0.00-0.02); LYMPH % 17.9 %; LYMPH ABS # 1.64 K/uL (1.2-3.4); MEAN CORPUSCULAR HEMOGLOBIN 32.6 pg (25-34); MEAN PLATELET VOLUME 10.4 fL (7.4-10.4); MONO % 7.1 %; MONO ABS # 0.65 K/uL (0.11-0.59); NEUT % 72.9 %; NEUT ABS # 6.66 K/uL (1.4-6.5); PLATELET COUNT 333 K/uL (130-400); RED CELL DISTRIBUTION WIDTH CV 14.1 % (11.5-14.5); RED CELL DISTRIBUTION WIDTH SD 49.3 fL (36.4-46.3); WHITE BLOOD COUNT 9.14 K/uL (4.8-10.8)
== END | disposition home or self-care (01) ==
LOC: C.LAB1850 11:20
PROVIDERS: ATTEND Obstetrics & Gynecology
DX: O99.351 Diseases of the nervous system complicating pregnancy, first trimester (principal); Z3A.00 Weeks of gestation of pregnancy not specified; G35 Multiple sclerosis

== ENCOUNTER → 2017-09-02 | Outpatient (CLI) | payer OTHER ==
[~2017-09-02] MED LIST changes: -FRRS300 PO
== END | disposition home or self-care (01) ==
LOC: C.LAB1850 16:18
PROVIDERS: ATTEND Obstetrics & Gynecology
DX: O28.1 Abnormal biochemical finding on antenatal screening of mother (principal)

== ENCOUNTER → 2017-09-17 | Outpatient (CLI) | payer OTHER | END | disposition home or self-care (01) | LOC: C.LAB1850 09:57 | PROVIDERS: ATTEND Obstetrics & Gynecology | DX: O99.352 Diseases of the nervous system complicating pregnancy, second trimester (principal); G35 Multiple sclerosis ==

== ENCOUNTER 2017-10-19 22:57 | Outpatient (CLI) | payer OTHER ==
[~2017-10-19] VITALS: Ht 167.6 cm; Wt 58.0 kg
[2017-10-20] MEDS ORDERED: ACETAMINOPHEN 500 MG TAB PO STA (00:20)
[2017-10-20 00:58] VITALS: Ht 167.6 cm; Wt 58.0 kg
== END 2017-10-20 01:00 | disposition home or self-care (01) ==
LOC: C.OPB 22:57 → C.LD 22:58 → C.OPB 10-20 01:00
PROVIDERS: ATTEND Obstetrics & Gynecology
DX: O46.92 Antepartum hemorrhage, unspecified, second trimester (principal); R10.31 Right lower quadrant pain; Z3A.20 20 weeks gestation of pregnancy

== ENCOUNTER → 2017-10-19 | Outpatient (CLI) | payer OTHER | END | disposition home or self-care (01) | LOC: C.LABBFT 12:18 | PROVIDERS: ATTEND Obstetrics & Gynecology | DX: O36.0920 Maternal care for other rhesus isoimmunization, second trimester, not applicable or unspecified (principal); Z3A.00 Weeks of gestation of pregnancy not specified ==

== ENCOUNTER → 2017-11-12 | Outpatient (CLI) | payer OTHER | END | disposition home or self-care (01) | LOC: C.LAB1850 11:37 | PROVIDERS: ATTEND Obstetrics & Gynecology | DX: O36.0920 Maternal care for other rhesus isoimmunization, second trimester, not applicable or unspecified (principal); Z3A.00 Weeks of gestation of pregnancy not specified ==

== ENCOUNTER → 2017-12-03 | Outpatient (CLI) | payer OTHER ==
[2017-12-03 12:23] LABS: HEMOGLOBIN 10.9 g/dL (12.0-16.0)
== END | disposition home or self-care (01) ==
LOC: C.LAB1850 09:49
PROVIDERS: ATTEND Obstetrics & Gynecology
DX: Z34.83 Encounter for supervision of other normal pregnancy, third trimester (principal); O36.0920 Maternal care for other rhesus isoimmunization, second trimester, not applicable or unspecified

== ENCOUNTER → 2017-12-24 | Outpatient (CLI) | payer OTHER ==
[2017-12-24 12:26] LABS: HEMOGLOBIN 10.9 g/dL (12.0-16.0); MEAN CELL VOLUME 95.5 fL (80-100); MEAN CORPUSCULAR HEMOGLOBIN 32.5 pg (25-34); MEAN CORPUSCULAR HGB CONC 34.1 g/dl (32-36); MEAN PLATELET VOLUME 10.6 fL (7.4-10.4); PLATELET COUNT 278 K/uL (130-400); RED CELL DISTRIBUTION WIDTH CV 13.5 % (11.5-14.5); RED CELL DISTRIBUTION WIDTH SD 47.2 fL (36.4-46.3); WHITE BLOOD COUNT 14.72 K/uL (4.8-10.8)
[2017-12-24 12:57] LABS: ALT/SGPT 16 U/L (12-78); AST/SGOT 17 U/L (15-37); BLOOD UREA NITROGEN 13 mg/dl (7-18); CALCIUM 8.6 mg/dl (8.5-10.1); CARBON DIOXIDE 24 mmol/L (21-32); CREATININE 0.66 mg/dl (0.60-1.20); GLUCOSE 83 mg/dl (70-99); POTASSIUM 3.3 mmol/L (3.5-5.1); SODIUM 137 mmol/L (136-145)
[2017-12-24 13:01] LABS: ALKALINE PHOSPHATASE 138 U/L (45-117); TOTAL PROTEIN 7.2 gm/dl (6.4-8.2)
== END | disposition home or self-care (01) ==
LOC: C.LAB1850 11:09
PROVIDERS: ATTEND Obstetrics & Gynecology
DX: O12.13 Gestational proteinuria, third trimester (principal)

== ENCOUNTER → 2017-12-25 | Outpatient (CLI) | payer OTHER | END | disposition home or self-care (01) | LOC: C.LABSPEC 15:44 | PROVIDERS: ATTEND Obstetrics & Gynecology | DX: O12.13 Gestational proteinuria, third trimester (principal) ==